=== PATIENT | male | born 1940 | race Caucasian/White ===

== ENCOUNTER 2020-01-09 14:15 | Inpatient (IN) | payer MEDICARE, MEDICAID ==
[~2020-01-09] VITALS: Ht 172.7 cm; Wt 83.1 kg
[2020-01-09] MEDS ORDERED: METHYL SALICYLATE/MENTHOL TOPICAL OINTMENT 57GM TUBE. TP PRN (21:15)
[2020-01-09] MEDS ORDERED: MAGNESIUM HYDROXIDE 2,400 MG/30 ML ORAL.SUSP. PO PRN (21:15)
[2020-01-09] MEDS ORDERED: MAG HYDROX/AL HYDROX/SIMETH 30 ML ORAL.SUSP PO PRN (21:15)
[2020-01-09] MEDS ORDERED: ACETAMINOPHEN 325 MG TABLET PO PRN (21:15)
[2020-01-09] MEDS ORDERED: ATORVASTATIN CA80 MG PO (21:40)
[2020-01-09] MEDS ORDERED: HYDR-2145 PO (21:40)
[2020-01-09] MEDS ORDERED: SEMA0.25 SQ (21:40)
[2020-01-09] MEDS ORDERED: MEDR10TA3 PO (21:40)
[2020-01-09] MEDS ORDERED: UMEC62.5 IH (21:40)
[2020-01-09] MEDS ORDERED: DONE10TA7 PO (21:40)
[2020-01-09] MEDS ORDERED: GLIM2TAB7 PO (21:40)
[2020-01-09] MEDS ORDERED: PANT40TA3 PO (21:40)
[2020-01-09] MEDS ORDERED: ASPI-630 PO (21:40)
[2020-01-09] MEDS ORDERED: POTA20TA4 PO (21:40)
[2020-01-09] MEDS ORDERED: FLAX100031 PO (21:40)
[2020-01-09] MEDS ORDERED: DIVA125C2 PO (21:40)
[2020-01-09] MEDS ORDERED: LABE200T4 PO (21:40)
[2020-01-09] MEDS ORDERED: MEMA10TA PO (21:40)
[2020-01-09] MEDS ORDERED: TRIA15OI TP (21:40)
[2020-01-09 21:59] VITALS: BP 155/80
--- NOTE | 2020-01-09 22:24 | PDOC ---
Exam Note: Cheng Note: Please also refer to the separate dictated note~for this date of service dictated separately.~Patient seen individually. Discussed the patient with Nursing staff reviewed the chart.~Reviewed interim history and current functioning. Reviewed vital signs,~Labs/ Radiology~and current medications noted below. Continue current treatment with the changes noted in the dictated addendum note Assessment: Vital Signs/I&O: Vital Signs Date Time Temp Pulse Resp B/P (MAP) Pulse Ox O2 Delivery O2 Flow Rate FiO2 01/09/20 21:59 97.5 68 18 155/80 (105) 98 Current Medications: I have reviewed the current psychotropics carefully including drug interactions. Risk benefit ratio favors no change other than as noted in my dictated progress note. SAVANNAH BIRD MD Jan 09, 2020 22:24
[2020-01-09] MEDS: LABETALOL HCL 200 MG TABLET PO SCH (22:27)
--- NOTE | 2020-01-10 03:06 | NUR ---
Admission Note with Justification for Admission to [facility] Patient admitted to [facility] for protective oversight for emergency stabilization of acute psychiatric crisis. Pt admitted from: SNF Mode of arrival: EMS Accompanied By: EMS Precipitating behaviors that initiated intake and admission: Inappropriate Sexual Behaviors Description of failure of out patient attempts at stabilization in previous setting list behavior and medication trials: Facility Unable to control behaviors. Danger to staff and peers. Behaviors and assessment findings upon admission: Patient has been calm and compliant since arrival. Pleasant during interactions. Very [place]. Compliant with admission assessment. Plan: Admit for protective oversight for adjustment and stabilization of medications, behaviors and mood. Intense treatment regimen including groups, medication adjustments, therapy, consistent regimen for ADL's, self care, and sleep hygiene. Daily monitoring by Inpatient staff, Psychiatry, and Medical Physician.
[2020-01-10 05:21] LABS: CLARITY,URINE CLOUDY; COLOR,URINE BROWN; GLUCOSE,URINE NEG (NEG)
[2020-01-10 05:23] LABS: BILIRUBIN,URINE NEG (NEG); NITRITE,URINE POS (NEG); RBC,URINE TNTC /HPF (0-2)
[2020-01-10 05:24] LABS: BACTERIA,URINE FEW /HPF (0-FEW); SQUAMOUS EPITHELIAL CELL,UR FEW /LPF
[2020-01-10 05:52] LABS: BASO # 0.1 x10^3/uL (0.0-0.2); BASO % 1 % (0-3); EOS # 0.1 x10^3/uL (0.0-0.7); EOS % 2 % (0-3); HEMATOCRIT 35.9 % (39.0-53.0); HEMOGLOBIN 11.6 g/dL (13.0-17.5); LYMPH # 2.1 x10^3/uL (1.0-4.8); LYMPH % 26 % (24-48); MEAN CORPUSCULAR HEMOGLOBIN 28 pg (25-35); MEAN CORPUSCULAR HGB CONC 32 g/dL (31-37); MEAN CORPUSCULAR VOLUME 87 fL (79-100); MONO # 0.7 x10^3/uL (0.0-1.1); MONO % 9 % (0-9); NEUT # 5.1 x10^3uL (1.8-7.7); NEUT % 63 % (31-73); PLATELET COUNT 289 x10^3/uL (140-400); RED BLOOD COUNT 4.15 x10^6/uL (4.30-5.70); RED CELL DISTRIBUTION WIDTH 16.9 % (11.5-14.5); WHITE BLOOD COUNT 8.1 x10^3/uL (4.0-11.0)
[2020-01-10 06:06] LABS: VAL ACID 21 mcg/mL (50-100)
[2020-01-10 06:08] LABS: ALBUMIN/GLOBULIN RATIO 0.8 (1.0-1.7); CALCIUM 8.9 mg/dL (8.5-10.1); CREATININE 1.9 mg/dL (0.7-1.3); GFR 34.2; MAGNESIUM 2.3 mg/dL (1.8-2.4); TOTAL BILIRUBIN 0.3 mg/dL (0.2-1.0); TOTAL PROTEIN 6.9 g/dL (6.4-8.2)
[2020-01-10 06:23] VITALS: BP 129/71
[2020-01-10] MEDS ORDERED: hydroCHLOROthiazide 25 MG TABLET PO SCH (09:00)
[2020-01-10] MEDS ORDERED: UMECLIDINIUM BROMIDE IH SCH (09:00)
[2020-01-10] MEDS ORDERED: POTASSIUM CHLORIDE 20 MEQ TABLET.ER. PO SCH (09:00)
[2020-01-10] MEDS: NON FORMULARY ITEM (Flaxseed Oil (Flaxseed) 1,000 MG) PO SCH ×2 (09:31→21:00)
[2020-01-10] MEDS: MEMANTINE 10 MG TABLET. PO SCH ×2 (09:41→21:00)
[2020-01-10] MEDS: DIVALPROEX 125 MG CAP.SPRINK PO SCH ×3 (09:42→21:00)
[2020-01-10] MEDS: ASPIRIN CHEWABLE 81 MG TABLET. PO SCH (09:42)
[2020-01-10] MEDS: GLIMEPIRIDE 2 MG TABLET PO SCH ×3 (09:42→17:50)
[2020-01-10] MEDS: PANTOPRAZOLE 40 MG TABLET. PO SCH (09:42)
[2020-01-10] MEDS: LABETALOL HCL 200 MG TABLET PO SCH ×2 (09:42→21:06)
[2020-01-10] MEDS: IPRATROPIUM/ALBUTEROL 20/100mcg/INH INHALER. INH SCH ×5 (09:43→20:59)
[2020-01-10] MEDS: TRIAMCINOLONE ACETONIDE 0.1% TOPICAL OINTMENT 15GM TUBE. TP SCH ×3 (09:43→21:00)
--- NOTE | 2020-01-10 13:14 | NUR ---
Patient not receptive to medications. He took the cup and laid it on the bed next to himself. Nurse had remind patient medications were there multiple times. Eventually medications were given a few at a time on a spoon. Patient was able to handle the water glass himself. Patient oriented to name and and seems to be very disorganized and [place]. He was NOT noted to be inappropriate with this nurse during our interaction. He was calm and cooperative.
[2020-01-10 15:15] LABS: THYROID STIM HORMONE (TSH) 1.465 uIU/mL (0.358-3.740)
[2020-01-10 15:16] VITALS: BP 121/67
[2020-01-10] MEDS: POTASSIUM BICARB 20 MEQ EFFERVESCENT TABLET. PO SCH (15:25)
--- NOTE | 2020-01-10 16:00 | NUR ---
Patient was sexually inappropriate with [employer]PECTOR, attempting to pull her into bed with himself. Patient is having a difficult time taking medications, he is disorganized. Patients urine sample went to culture.
[2020-01-10 17:07] LABS: THYROXINE 4.7 ug/dL (4.5-12.0)
--- NOTE | 2020-01-10 17:51 | NUR ---
Patient rude and dismissive to nurse. He put his hand up in front of nurse face and refused his medications.
--- NOTE | 2020-01-10 19:26 | CONS ---
DATE OF CONSULTATION: 01/10/2020 REASON FOR CONSULTATION: Medical management. HISTORY OF PRESENT ILLNESS: The patient is an 79-year-old male patient, a resident at [facility] who was admitted on account of being sexually inappropriate in terms of behavior and statement towards staff and peers, all this in a background of major neurocognitive disorder, vascular Alzheimer with delusion, depression with behavioral disturbances, anxiety disorder unspecified and also impulse control. The patient is extremely or profoundly demented, does not give any useful information. He displayed that behavior at this unit also today. PAST MEDICAL HISTORY: Significant for chronic obstructive pulmonary disease, type 2 diabetes, hyperlipidemia, osteoarthritis, obstructive sleep apnea, hypertension. ALLERGIES: He is allergic to ADENOSINE and ALOE VERA. MEDICATIONS: He is currently on following medications: Aricept 10 mg once a day, potassium bicarbonate 20 mEq once a day, flaxseed 1000 mg p.o. b.i.d., triamcinolone acetonide for Kenalog cream applied topically 3 times a day, Protonix 40 mg daily, Namenda 10 mg twice a day, hydrochlorothiazide 25 mg daily, divalproex sodium 125 mg 3 times a day, aspirin 81 mg daily, Combivent Respimat inhaler 1 puff 4 times a day, glimepiride 2 mg twice a day with meals, labetalol 200 mg twice a day, magnesium oxide for milk of magnesia 30 mL p.o. daily p.r.n. for constipation, Mylanta plus 15 mL after meals and as needed. He is on Analgesic balm 1 application 4 times a day and Tylenol 650 mg every 6 hours. FAMILY HISTORY: Unobtainable. SOCIAL HISTORY: Apparently, he is a resident at [facility]. No further information available. His diet is regular with reduced carbs. He apparently is able to ambulate ad yimi. PHYSICAL EXAMINATION: GENERAL: When I examined him this afternoon, he was resting slightly propped up in bed, in no apparent respiratory distress, slightly pale. No jaundice or cyanosis. No lymphadenopathy, no thyromegaly. No jugular venous distention. No limb edema. VITAL SIGNS: His heart rate was 61, blood pressure was 121/67, temperature was 98.1, respiratory rate was 18 and oxygen saturation was 97% on room air. HEAD, EYES, EARS, NOSE AND THROAT: Showed he is normocephalic, atraumatic. NECK: Supple. HEART: Normal first and second heart sounds. No gallop, rub or murmur. CHEST: Clear to auscultation. No crepitation or rhonchi. ABDOMEN: Distended, soft, nontender. NEUROLOGIC: He is demented, but without any obvious lateralizing sign. All his cranial nerves are intact. EXTREMITIES: He moves extremities without difficulty and apparently is able to ambulate. LABORATORY DATA: His lab work showed a white cell count of 8100, hemoglobin 11.6, hematocrit 35.9, MCV 87 and platelet count of 289,000. His chemistry showed serum sodium 151, potassium 3, chloride 112, bicarbonate 30, anion gap of 9, BUN 33, creatinine 1.9, estimated GFR was 34 mL per minute, his glucose 145, calcium was 8.9, magnesium was 2.3. Serum iron, TIBC and iron saturation are all consistent with anemia of chronic disease. His total bilirubin, AST, ALT, alkaline phosphatase were normal. Total protein was 6.9, albumin was 3. Serum triglycerides were 78, total cholesterol was 121, LDL was 77, VLDL was 15, HDL was 29 and the ratio was 4. His TSH was 1.465. His urinalysis showed the urine was brown, cloudy with a pH of 7, specific gravity of 1.020. There was a small amount of protein, negative for glucose and ketones, large amount of blood, positive for nitrite. There was large amount of leukocyte esterase, too numerous to count rbc's and 11-20 wbc's, and very few bacteria. Toxic screen showed that his valproic acid was only 21 mcg/mL, which is below the lower limit of therapeutic range. IMPRESSION: In summary, this is an 79-year-old male patient, a resident at [facility], who was admitted for sexually inappropriate behavior and statement towards staff and peers, all this obviously in a background of major neurocognitive disorder. Medically, however, he has a multitude of medical problems including chronic obstructive pulmonary disease, type 2 diabetes, hyperlipidemia, hypertension, obstructive sleep apnea and generalized osteoarthritis. His lab work also showed that he has hypernatremia with a serum sodium of 151. He has also hypokalemia and chronic kidney disease. His BUN and creatinine are up to 33 and 1.9. He has also hematuria. His anemia is normochromic normocytic with iron studies consistent with anemia of chronic disease. PLAN: My plan is to discontinue his potassium chloride as he is unable to swallow tablets and switch him to potassium bicarbonate and effervescent tablet. I discontinued his hydrochlorothiazide and his blood pressure is somewhat labile, but I will arrange for him to have also CT scan of the abdomen and pelvis without contrast given that he has hematuria to see if there are any stones in his kidneys, hydronephrosis or any tumors that might be responsible for his hematuria. I will definitely repeat his lab work and might have to increase his potassium bicarbonate to replenish his potassium. Thank you, Dr. Snider for allowing me to participate in the care of this patient. JULIAN HERNANDEZ MD DR: STACI/rosita JOB#: [id number] / [id number]
[2020-01-10] MEDS: medroxyPROGESTERone 5 MG TABLET PO SCH (21:00)
[2020-01-10] MEDS: ATORVASTATIN CALCIUM 20 MG TABLET PO SCH (21:00)
[2020-01-10] MEDS: DONEPEZIL HCL 10 MG TABLET PO SCH (21:00)
--- NOTE | 2020-01-10 21:57 | PDOC ---
Exam Note: Cheng Note: Please also refer to the separate dictated note~for this date of service dictated separately.~Patient seen individually. Discussed the patient with Nursing staff reviewed the chart.~Reviewed interim history and current functioning. Reviewed vital signs,~Labs/ Radiology~and current medications noted below. Continue current treatment with the changes noted in the dictated addendum note Assessment: Vital Signs/I&O: Vital Signs Date Time Temp Pulse Resp B/P (MAP) Pulse Ox O2 Delivery O2 Flow Rate FiO2 01/10/20 21:06 61 121/67 01/10/20 15:16 98.1 18 97 I & O 01/09/20 01/09/20 01/10/20 15:00 23:00 07:00 Intake Total 0 ml Balance 0 ml Labs: Laboratory Tests Test 01/10/20 04:51 01/10/20 05:40 01/10/20 07:22 Urine Collection Type Unknown Urine Color Brown Urine Clarity Cloudy Urine pH 7.0 Urine Specific [place] 1.020 Urine Protein 100 mg/dl (NEG-TRACE) Urine Glucose (UA) Neg mg/dL (NEG) Urine Ketones (Stick) Neg mg/dL (NEG) Urine Blood Large (NEG) Urine Nitrite Pos (NEG) Urine Bilirubin Neg (NEG) Urine Urobilinogen Dipstick 1.0 mg/dL (0.2 mg/dL) Urine Leukocyte Esterase Large (NEG) Urine RBC Tntc /HPF (0-2) Urine WBC 11-20 /HPF (0-4) Urine Squamous Epithelial Cells Few /LPF Urine Bacteria Few /HPF (0-FEW) White Blood Count 8.1 x10^3/uL (4.0-11.0) Red Blood Count 4.15 x10^6/uL (4.30-5.70) L Hemoglobin 11.6 g/dL (13.0-17.5) L Hematocrit 35.9 % (39.0-53.0) L Mean Corpuscular Volume 87 fL (79-100) Mean Corpuscular Hemoglobin 28 pg (25-35) Mean Corpuscular Hemoglobin Concent 32 g/dL (31-37) Red Cell Distribution Width 16.9 % (11.5-14.5) H Platelet Count 289 x10^3/uL (140-400) Neutrophils (%) (Auto) 63 % (31-73) Lymphocytes (%) (Auto) 26 % (24-48) Monocytes (%) (Auto) 9 % (0-9) Eosinophils (%) (Auto) 2 % (0-3) Basophils (%) (Auto) 1 % (0-3) Neutrophils # (Auto) 5.1 x10^3uL (1.8-7.7) Lymphocytes # (Auto) 2.1 x10^3/uL (1.0-4.8) Monocytes # (Auto) 0.7 x10^3/uL (0.0-1.1) Eosinophils # (Auto) 0.1 x10^3/uL (0.0-0.7) Basophils # (Auto) 0.1 x10^3/uL (0.0-0.2) Sodium Level 151 mmol/L (136-145) H Potassium Level 3.0 mmol/L (3.5-5.1) L Chloride Level 112 mmol/L (98-107) H Carbon Dioxide Level 30 mmol/L (21-32) Anion Gap 9 (6-14) Blood Urea Nitrogen 33 mg/dL (8-26) H Creatinine 1.9 mg/dL (0.7-1.3) H Estimated GFR (Cockcroft-Gault) 34.2 BUN/Creatinine Ratio 17 (6-20) Glucose Level 145 mg/dL (70-99) H Calcium Level 8.9 mg/dL (8.5-10.1) Magnesium Level 2.3 mg/dL (1.8-2.4) Iron Level 26 ug/dL (65-175) L Total Iron Binding Capacity 259 ug/dL (250-450) Iron Saturation 10 % (15-34) L Total Bilirubin 0.3 mg/dL (0.2-1.0) Aspartate Amino Transferase (AST) 15 U/L (15-37) Alanine Aminotransferase (ALT) 25 U/L (16-63) Alkaline Phosphatase 88 U/L (46-116) Total Protein 6.9 g/dL (6.4-8.2) Albumin 3.0 g/dL (3.4-5.0) L Albumin/Globulin Ratio 0.8 (1.0-1.7) L Triglycerides Level 78 mg/dL (0-150) Cholesterol Level 121 mg/dL (0-200) LDL Cholesterol, Calculated 77 mg/dL (0-100) VLDL Cholesterol, Calculated 15 mg/dL (0-40) Non-HDL Cholesterol Calculated 92 mg/dL (0-129) HDL Cholesterol 29 mg/dL (40-60) L Cholesterol/HDL Ratio 4.0 Thyroid Stimulating Hormone (TSH) 1.465 uIU/mL (0.358-3.740) Thyroxine (T4) 4.7 ug/dL (4.5-12.0) Total Triiodothyronine (TT3) 74 ng/dL (71-180) Valproic Acid Level 21 mcg/mL (50-100) L Valproic Acid Last Dose Date 01/09/2020 Valproic Acid Last Dose Time 2100 Glucose (Fingerstick) 141 mg/dL (70-99) H Current Medications: Meds: Current Medications Medications (Trade) Dose Ordered Sig/Gabrielle Route PRN Reason Start Time Stop Time Status Last Admin Dose Admin Aspirin (Aspirin Chewable) 81 mg DAILY PO 01/10/20 09:00 01/10/20 09:42 Divalproex Sodium (Depakote Sprinkles) 125 mg TID PO 01/10/20 09:00 01/10/20 17:34 DC 01/10/20 15:24 Donepezil HCl (Aricept) 10 mg QHS PO 01/10/20 21:00 01/10/20 21:00 Glimepiride (Amaryl) 2 mg BIDWMEALS PO 01/10/20 08:00 01/10/20 09:42 Hydrochlorothiazide (Hydrodiuril) 25 mg DAILY PO 01/10/20 09:00 01/10/20 16:51 DC 01/10/20 09:42 Labetalol HCl (Trandate) 200 mg BID PO 01/09/20 22:15 01/10/20 21:06 Memantine (Namenda) 10 mg BID PO 01/10/20 09:00 01/10/20 21:00 Pantoprazole Sodium (Protonix) 40 mg DAILY PO 01/10/20 09:00 01/10/20 09:42 Potassium Chloride (Klor-Con) 20 meq DAILY PO 01/10/20 09:00 01/10/20 14:18 DC 01/10/20 09:41 Triamcinolone Acetonide (Kenalog) 1 danny TID TP 01/10/20 09:00 01/10/20 21:00 Atorvastatin Calcium (Lipitor) 80 mg QHS PO 01/10/20 21:00 01/10/20 21:00 Medroxyprogesterone Acetate (Provera) 10 mg HS PO 01/10/20 21:00 01/10/20 21:00 Albuterol/ Ipratropium (Combivent Respimat 20-100 Mcg) 1 puff RTQID INH 01/10/20 08:00 01/10/20 20:59 Potassium Bicarbonate (Potassium Effervescent Tablet) 20 meq DAILY PO 01/10/20 14:30 01/10/20 15:25 Divalproex Sodium (Depakote Sprinkles) 250 mg BID PO 01/10/20 21:00 01/10/20 21:00 I have reviewed the current psychotropics carefully including drug interactions. Risk benefit ratio favors no change other than as noted in my dictated progress note. Diagnosis: Problems: (1) Major neurocognitive disorder (2) Dementia in Alzheimer's disease with delusions (3) Dementia in Alzheimer's disease with depression (4) Dementia of the Alzheimer's type with early onset with behavioral distur bance (5) Dementia, vascular, with delusions (6) Dementia, vascular, with depression (7) Impulse control disorder, unspecified (8) Anxiety disorder, unspecified SAVANNAH BIRD MD Jan 10, 2020 21:57
--- NOTE | 2020-01-10 23:28 | NUR ---
Nursing Note The patient was located in his room for his assessment and medication pass. The patient was compliant with his medication and took them whole. The patient was disorganized and very [place] but was compliant and pleasant during interactions with this nurse. The patient is currently sleeping in his room.
[2020-01-11 05:09] LABS: HEMOGLOBIN A1C 7.7 % (4.8-5.6)
[2020-01-11 06:29] VITALS: BP 146/77
[2020-01-11 06:58] LABS: CALCIUM 8.5 mg/dL (8.5-10.1); CREATININE 1.6 mg/dL (0.7-1.3); GFR 41.7; POTASSIUM 3.2 mmol/L (3.5-5.1)
--- NOTE | 2020-01-11 08:31 | RAD ---
EXAM: Abdomen and pelvis CT without intravenous contrast. HISTORY: Hematuria. Renal failure. TECHNIQUE: Computed tomographic images of the abdomen and pelvis were obtained without contrast. Multiplanar reformatting was performed. *One or more of the following individualized dose reduction techniques were utilized for this examination: 1. Automated exposure control. 2. Adjustment of the mA and/or kV according to patient size. 3. Use of iterative reconstruction technique. COMPARISON: None. FINDINGS: The exam is limited due to motion. There is right middle and lower lobe atelectasis or pleural parenchymal scarring. There is calcified atherosclerotic plaque involving the coronary arteries. No consolidation or pleural effusion is seen. No hepatic lesion is seen. There is slight increased density within the dependent portions of the gallbladder, possibly artifact due to patient motion or cholelithiasis. The pancreas, spleen and stomach are unremarkable. There are bilateral adrenal gland nodules measuring 2.4 cm of the right and 2.6 cm of the left. The attenuation of these lesions favors adrenal adenomas. There are multiple hypodense lesions within the kidneys. The largest lesion on the right is seen within the lower pole measuring 4.1 cm with attenuation consistent with a cyst. There may be an adjacent smaller cyst in this location. There is a 6 mm nodular lesion along the lateral lower mid zone of the right kidney which is too small to characterize in the absence of contrast. There is a 4.1 cm cyst within the upper pole of the left kidney. There is 1.7 cm cyst within the lower pole the left kidney. There is a tiny right renal stone or renal vascular calcification. There is no hydronephrosis. The urinary bladder is unremarkable. There is no evidence of bowel obstruction. There is distal colonic diverticulosis without evidence of diverticulitis. There is ectasia of the abdominal aorta to a caliber of 2.8 cm. There is calcified atherosclerotic plaque involving the aorta and main aortic branch vessels. There is no lymphadenopathy. There are degenerative changes throughout the spine. There is a moderate acute or subacute compression fracture of T11. There is no retropulsion of the cortex at this level. There is a suspected chronic fracture involving the sacrum. There are chronic nonunited and nonunited fractures involving the posterior left 11th and 10th ribs. There are additional healed rib fractures. There is bone demineralization. There is a small fat-containing left inguinal hernia. IMPRESSION: 1. Multiple bilateral renal cysts. There is a superimposed 6 mm nodular lesion along the lateral right kidney which is too small to characterize. This may also be a cyst. Follow-up with a contrast-enhanced exam may be useful to exclude a solid lesion. This likely too small to characterize sonographically. There is no hydronephrosis. 2. Tiny right renal stone or renal vascular calcification. 3. Colonic diverticulosis. 4. Slight increased density within the gallbladder due to motion artifact or cholelithiasis. 5. Bilateral adrenal nodules, the attenuation of which favors adenomas. 6. Moderate acute or subacute compression fracture of T11. Electronically signed by: Mariela Cornejo MD (01/11/2020 8:28 AM) [id number]
[2020-01-11] MEDS: GLIMEPIRIDE 2 MG TABLET PO SCH ×2 (08:51→18:03)
[2020-01-11] MEDS: POTASSIUM BICARB 20 MEQ EFFERVESCENT TABLET. PO SCH (08:52)
[2020-01-11] MEDS: ASPIRIN CHEWABLE 81 MG TABLET. PO SCH (08:52)
[2020-01-11] MEDS: LABETALOL HCL 200 MG TABLET PO SCH ×2 (08:52→21:01)
[2020-01-11] MEDS: MEMANTINE 10 MG TABLET. PO SCH ×2 (08:52→21:01)
[2020-01-11] MEDS: PANTOPRAZOLE 40 MG TABLET. PO SCH (08:52)
[2020-01-11] MEDS: IPRATROPIUM/ALBUTEROL 20/100mcg/INH INHALER. INH SCH ×4 (08:52→20:59)
[2020-01-11] MEDS: DIVALPROEX 125 MG CAP.SPRINK PO SCH ×2 (08:52→21:00)
[2020-01-11] MEDS: TRIAMCINOLONE ACETONIDE 0.1% TOPICAL OINTMENT 15GM TUBE. TP SCH ×3 (08:53→21:00)
--- NOTE | 2020-01-11 12:27 | HP ---
ADMIT DATE: 01/10/2020 This late entry date of service 01/10/2020 covers elements not covered in my initial note. This evaluation was conducted via Telehealth services and discussed with PRANAV Estes and previously with Vanda Obregon, educational resource coordinator. IDENTIFYING DATA: The patient is an 79-year-old male referred to us from [place], [place], referred by his primary care physician on account of increasing agitation, aggression, disruptive behaviors within the facility and within the context of his major neurocognitive disorder, Alzheimer, vascular with delusion, depression, behavioral disturbance. He was making sexually inappropriate physical acts towards nursing staff and verbal statements towards staff and peers. The patient's behaviors were deemed dangerous, unmanageable, disruptive at the facility resulting in this referral for stabilization. CHIEF COMPLAINT: "No." The patient is quite confused, does not even seem to know what to do with his food and medications when they were presented to him. HISTORY OF PRESENT ILLNESS: The patient has a history of major neurocognitive disorder, Alzheimer, vascular with delusion, depression, behavioral disturbance. He has been residing at the above facility for some time, recently getting more confused, agitated with sleep and appetite changes, psychotic symptoms. No active suicidal or homicidal ideation. No clear history of bipolar disorder. PAST PSYCHIATRIC HISTORY: As above. MEDICAL HISTORY: Positive for probable urinary tract infection. UA had some blood and cultures awaited. Also has a history of COPD, heart disease, type 2 diabetes mellitus, hyperlipidemia, osteoarthritis, obstructive sleep apnea, hypertension. DRUG ALLERGIES: ADENOSINE AND ALOE VERA. CODE STATUS: DNR. Ambulates ad yimi. CURRENT PSYCHOTROPICS: Depakote Sprinkles 125 mg t.i.d., Aricept 10 mg a day, Namenda 10 mg b.i.d., valproic acid level subtherapeutic at 21. REVIEW OF SYSTEMS: No CV, , pulmonary, eye, ENT system symptoms on review. Reliability poor. MENTAL STATUS EXAMINATION: Oriented to himself. Insight, judgment, recent and remote memory, attention, concentration, fund of knowledge poor, consistent with his diagnosis. IMPRESSION: Major neurocognitive disorder, Alzheimer, vascular with delusion, depression, behavioral disturbance; anxiety disorder, unspecified; impulse control disorder, unspecified; probable urinary tract infection. Rest unchanged from above. PLAN: Admit to Geropsychiatry Unit at [facility]. I will see the patient daily individually from a psychiatric standpoint. Medical followup with Dr. Delatorre/Dr. Gonzales. Valproic acid level subtherapeutic at 21. We will increase the Depakote Sprinkles from 125 t.i.d. to 250 mg b.i.d. Check CBC, CMP, valproic acid level in [address] Delatorre is working up the UTI and also showed blood in the urine. Having a CT abdomen per Dr. Delatorre. Slept 5-3/4 hours previous night. We will observe baseline, adjust psychotropics to stabilize him prior to transitioning back to [facility]. ESTIMATED LENGTH OF STAY: 10-12 days. DISPOSITION: Plans back to [facility] when stable. MAN Tricia BIRD MD DR: MARY ELLEN/rosita JOB#: [id number] / [id number]
--- NOTE | 2020-01-11 13:15 | NUR ---
ACTIVITY THERAPY ASSESSMENT completed based on notes, observation, and interview. Pt was sitting in his room eating lunch. Pt was willing to answer questions from AT when asked. Pt was calm, pleasant, and controlled during time of assessment. Pt is very [place] and inaudible at times. When AT asked pt how he was doing today he said that he felt good. AT used this that questions to find leisure interests.Pt likes music and reading. Pt doesn't like to watch TV. Pt spit out food like he had a sunflower seed or chew in his mouth. AT asked pt if he was or had children and he said no. When asked about family pt spoke but it was inaudible. AT asked what pt liked to do with his friends and he said that he could never get to know his friends. AT asked if pt knew where he was and it sounded like pt said in the middle of a [employer]. Pt could not identify the current year. Pt was unable to give reason for admission and asked why. AT explained the doctor would be looking over his medications to get him better. Pt then began to speak about stair steps. Pt was confused, disoriented, and disorganized. Initial goal aimed to increase time management and socialization skills. Pt will participate in at least one individual or group Activity Therapy session before discharge. Addendum: 01/19/20 at 1141 by EVAN JENKINS ACT Goal changed 01/18: Pt. will participate in at least three individual Activity Therapy sessions per week.
[2020-01-11 15:51] VITALS: BP 99/63
--- NOTE | 2020-01-11 17:22 | NUR ---
Patient was calmly laying in bed eating toast, he seemed to be having problems manipulating it to his mouth. Patient was compliant with medications but needed a lot of prompting from nurse and step by step instructions. Patients diet was switched to finger foods by dietary, nursing staff will continue to monitor. When nurse asked patient questions he made non-sensible answers. No s/s pain noted. Cooperative with CT abdomen this morning. Will give results to Dr Gonzales on rounds.
[2020-01-11 20:56] VITALS: BP 121/67
[2020-01-11] MEDS: ATORVASTATIN CALCIUM 20 MG TABLET PO SCH (21:00)
[2020-01-11] MEDS: medroxyPROGESTERone 5 MG TABLET PO SCH (21:00)
[2020-01-11] MEDS: DONEPEZIL HCL 10 MG TABLET PO SCH (21:01)
--- NOTE | 2020-01-11 22:04 | PDOC ---
Exam Note: Cheng Note: Please also refer to the separate dictated note~for this date of service dictated separately.~Patient seen individually. Discussed the patient with Nursing staff reviewed the chart.~Reviewed interim history and current functioning. Reviewed vital signs,~Labs/ Radiology~and current medications noted below. Continue current treatment with the changes noted in the dictated addendum note Assessment: Vital Signs/I&O: Vital Signs Date Time Temp Pulse Resp B/P (MAP) Pulse Ox O2 Delivery O2 Flow Rate FiO2 01/11/20 21:04 97.9 95 01/11/20 21:01 62 121/67 01/11/20 15:51 20 I & O 01/10/20 01/10/20 01/11/20 15:00 23:00 07:00 Intake Total 1130 ml 300 ml Balance 1130 ml 300 ml Labs: Laboratory Tests Test 01/11/20 06:38 Sodium Level 145 mmol/L (136-145) Potassium Level 3.2 mmol/L (3.5-5.1) L Chloride Level 107 mmol/L (98-107) Carbon Dioxide Level 28 mmol/L (21-32) Anion Gap 10 (6-14) Blood Urea Nitrogen 25 mg/dL (8-26) Creatinine 1.6 mg/dL (0.7-1.3) H Estimated GFR (Cockcroft-Gault) 41.7 Glucose Level 137 mg/dL (70-99) H Calcium Level 8.5 mg/dL (8.5-10.1) Current Medications: I have reviewed the current psychotropics carefully including drug interactions. Risk benefit ratio favors no change other than as noted in my dictated progress note. 

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
[2020-01-12 05:41] VITALS: BP 137/67
[2020-01-12] MEDS: IPRATROPIUM/ALBUTEROL 20/100mcg/INH INHALER. INH SCH ×5 (08:29→20:00)
[2020-01-12] MEDS: TRIAMCINOLONE ACETONIDE 0.1% TOPICAL OINTMENT 15GM TUBE. TP SCH ×4 (08:29→21:00)
[2020-01-12] MEDS: POTASSIUM BICARB 20 MEQ EFFERVESCENT TABLET. PO SCH (08:30)
[2020-01-12] MEDS: MEMANTINE 10 MG TABLET. PO SCH ×2 (08:30→19:57)
[2020-01-12] MEDS: LABETALOL HCL 200 MG TABLET PO SCH ×3 (08:30→21:00)
[2020-01-12] MEDS: PANTOPRAZOLE 40 MG TABLET. PO SCH (08:30)
[2020-01-12] MEDS: DIVALPROEX 125 MG CAP.SPRINK PO SCH ×2 (08:30→19:54)
[2020-01-12] MEDS: ASPIRIN CHEWABLE 81 MG TABLET. PO SCH (08:30)
[2020-01-12] MEDS: GLIMEPIRIDE 2 MG TABLET PO SCH ×2 (08:31→17:45)
--- NOTE | 2020-01-12 13:30 | NUR ---
Patient in hallway holding hands with female peer. Staff asked patient to stop holding hands, he was irritated by the request but complied.
--- NOTE | 2020-01-12 15:28 | NUR ---
Patient eating breakfast when nurse approached him with medications. Patient refused meds and told this nurse to "get the fuck" out of the room. Nurse observed patient put milk and then apple juice into his cereal and eat it. Medications were given crushed and hidden in vanilla pudding. The patient ate the pudding. Patient is uncooperative with assessment, feigns deafness when asked to do anything. The nurses overheard patient on the telephone having a normal volume conversation with someone and he didn't seem deaf at that time. After lunch patient was in the hallway without his mask on. He was standing very close to a male peer and having a conversation. He was asked to please put his mask on and then told to put it on by several staff members many times (more than 10 times). At that point patient was taken to his room and told to stay in the room if he would not comply with the mask rule. Patient was angry. A staff member was positioned in a chair outside of his doorway to ensure that he stayed in his room if he wouldn't wear the mask. Patient eventually fell asleep and is still sleeping at this time. Will give 1400 antibiotic hidden in snack when patient wakes up.
[2020-01-12 15:35] VITALS: BP 97/58
[2020-01-12] MEDS: CEPHALEXIN 250 MG CAPSULE PO SCH ×2 (17:45→19:57)
[2020-01-12] MEDS: QUEtiapine 25 MG TABLET. PO SCH (17:45)
[2020-01-12] MEDS: medroxyPROGESTERone 5 MG TABLET PO SCH (19:55)
[2020-01-12] MEDS: DONEPEZIL HCL 10 MG TABLET PO SCH (19:58)
[2020-01-12] MEDS: ATORVASTATIN CALCIUM 20 MG TABLET PO SCH (19:58)
[2020-01-12] MEDS: LACTOBACILLUS RHAMNOSUS GG 1 CAPSULE. PO SCH (19:58)
--- NOTE | 2020-01-12 20:20 | NUR ---
At HS med pass pt initially ignored nurse and would not respond. Assessment done and when meds offered pt just wanted to hold them and not take them. Meds were removed and will try again later.
[2020-01-12 20:29] VITALS: BP 72/55
--- NOTE | 2020-01-12 21:00 | NUR ---
Pt talikg some to nurse now meds were taken whole a few at a time with prompting. Laebtolol held for HR of 58. Pt has tremors of extremities and it is difficult to obtain a accurate BP reading at times.
[2020-01-12 21:24] VITALS: BP 106/67
--- NOTE | 2020-01-12 22:05 | PDOC ---
Exam Note: Cheng Note: Please also refer to the separate dictated note~for this date of service dictated separately.~Patient seen individually. Discussed the patient with Nursing staff reviewed the chart.~Reviewed interim history and current functioning. Reviewed vital signs,~Labs/ Radiology~and current medications noted below. Continue current treatment with the changes noted in the dictated addendum note Assessment: Vital Signs/I&O: Vital Signs Date Time Temp Pulse Resp B/P (MAP) Pulse Ox O2 Delivery O2 Flow Rate FiO2 01/12/20 21:24 106/67 (80) 01/12/20 20:29 98.1 67 97 01/12/20 15:35 20 I & O 01/11/20 01/11/20 01/12/20 15:00 23:00 07:00 Intake Total 480 ml 440 ml Balance 480 ml 440 ml Labs: Laboratory Tests Test 01/12/20 07:34 Glucose (Fingerstick) 116 mg/dL (70-99) H Current Medications: Meds: Current Medications Medications (Trade) Dose Ordered Sig/Gabrielle Route PRN Reason Start Time Stop Time Status Last Admin Dose Admin Quetiapine Fumarate (SEROquel) 12.5 mg 0900,1700 PO 01/12/20 17:00 01/12/20 17:45 Cephalexin HCl (Keflex) 250 mg TID PO 01/12/20 14:00 01/12/20 19:57 Lactobacillus Rhamnosus (Culturelle) 1 cap BID PO 01/12/20 21:00 01/12/20 19:58 I have reviewed the current psychotropics carefully including drug interactions. Risk benefit ratio favors no change other than as noted in my dictated progress note. Diagnosis: Problems: (1) Impulse control disorder, unspecified (2) Anxiety disorder, unspecified (3) Dementia, vascular, with depression (4) Dementia, vascular, with delusions (5) Dementia in Alzheimer's disease with depression (6) Dementia in Alzheimer's disease with delusions (7) Dementia of the Alzheimer's type with early onset with behavioral disturbance (8) Major neurocognitive disorder SAVANNAH BIRD MD Jan 12, 2020 22:05
[2020-01-13 07:03] VITALS: BP 137/73
[2020-01-13] MEDS: PANTOPRAZOLE 40 MG TABLET. PO SCH (08:10)
[2020-01-13] MEDS: POTASSIUM BICARB 20 MEQ EFFERVESCENT TABLET. PO SCH (08:10)
[2020-01-13] MEDS: DIVALPROEX 125 MG CAP.SPRINK PO SCH ×2 (08:10→20:58)
[2020-01-13] MEDS: LACTOBACILLUS RHAMNOSUS GG 1 CAPSULE. PO SCH ×2 (08:11→20:57)
[2020-01-13] MEDS: ASPIRIN CHEWABLE 81 MG TABLET. PO SCH (08:11)
[2020-01-13] MEDS: LABETALOL HCL 200 MG TABLET PO SCH ×2 (08:11→21:00)
[2020-01-13] MEDS: CEPHALEXIN 250 MG CAPSULE PO SCH ×3 (08:11→20:58)
[2020-01-13] MEDS: QUEtiapine 25 MG TABLET. PO SCH ×2 (08:11→16:15)
[2020-01-13] MEDS: GLIMEPIRIDE 2 MG TABLET PO SCH ×2 (08:11→16:15)
[2020-01-13] MEDS: MEMANTINE 10 MG TABLET. PO SCH ×2 (08:11→20:58)
[2020-01-13] MEDS: TRIAMCINOLONE ACETONIDE 0.1% TOPICAL OINTMENT 15GM TUBE. TP SCH (08:12)
[2020-01-13] MEDS: IPRATROPIUM/ALBUTEROL 20/100mcg/INH INHALER. INH SCH ×4 (08:12→20:57)
[2020-01-13] MEDS ORDERED: TRIAMCINOLONE ACETONIDE 0.1% TOPICAL OINTMENT 15GM TUBE. TP PRN (10:30)
--- NOTE | 2020-01-13 11:23 | NUR ---
Dr Gonzales notified of Vit D 29.4. No new orders noted.
[2020-01-13 16:17] VITALS: BP 97/69
--- NOTE | 2020-01-13 17:00 | NUR ---
Pt in room in morning. In halls in afternoon. Pt redirected several times to return to room without mask. Pt appears he cant hear staff and keeps miming staff. Has been compliant with meds in pudding.
[2020-01-13 20:53] VITALS: BP 123/75
[2020-01-13] MEDS: NYSTATIN TOPICAL POWDER 15GM BOTTLE. TP SCH (20:57)
[2020-01-13] MEDS: DONEPEZIL HCL 10 MG TABLET PO SCH (20:58)
[2020-01-13] MEDS: ATORVASTATIN CALCIUM 20 MG TABLET PO SCH (20:59)
[2020-01-13] MEDS: medroxyPROGESTERone 5 MG TABLET PO SCH (20:59)
--- NOTE | 2020-01-13 22:00 | NUR ---
Patient is his room on assumption of care, awake in his bed. He is confused, disorganized, and appears to have difficulty hearing. Compliant with assessments and took his medications whole floated in pudding. He seemed to have difficulty with that, chewing his pills, finally swallowing after this nurse encouraged him to do so several times. He does not appear to be in any pain or discomfort. No agitation. Patient appears to be sleeping comfortably at present time.
--- NOTE | 2020-01-13 22:23 | PDOC ---
Exam Note: Cheng Note: Please also refer to the separate dictated note~for this date of service dictated separately.~Patient seen individually. Discussed the patient with Nursing staff reviewed the chart.~Reviewed interim history and current functioning. Reviewed vital signs,~Labs/ Radiology~and current medications noted below. Continue current treatment with the changes noted in the dictated addendum note Assessment: Vital Signs/I&O: Vital Signs Date Time Temp Pulse Resp B/P (MAP) Pulse Ox O2 Delivery O2 Flow Rate FiO2 01/13/20 21:00 86 123/75 01/13/20 20:53 98.8 94 01/13/20 16:17 20 I & O 01/12/20 01/12/20 01/13/20 15:00 23:00 07:00 Intake Total 360 ml 360 ml Balance 360 ml 360 ml Labs: Laboratory Tests Test 01/13/20 07:39 Glucose (Fingerstick) 101 mg/dL (70-99) H Current Medications: Meds: Current Medications Medications (Trade) Dose Ordered Sig/Gabrielle Route PRN Reason Start Time Stop Time Status Last Admin Dose Admin Nystatin (Nystop) 1 danny BID TP 01/13/20 21:00 01/13/20 20:57 I have reviewed the current psychotropics carefully including drug interactions. Risk benefit ratio favors no change other than as noted in my dictated progress note. Diagnosis: Problems: (1) Impulse control disorder, unspecified (2) Anxiety disorder, unspecified (3) Dementia, vascular, with depression (4) Dementia, vascular, with delusions (5) Dementia in Alzheimer's disease with depression (6) Dementia in Alzheimer's disease with delusions (7) Dementia of the Alzheimer's type with early onset with behavioral disturbance (8) Major neurocognitive disorder SAVANNAH BIRD MD Jan 13, 2020 22:22
--- NOTE | 2020-01-13 22:26 | PN ---
DATE: 01/11/2020 PSYCHIATRIC PROGRESS NOTE This late entry 01/11/2020 covers elements not covered in my initial note. SUBJECTIVE: I met with the patient evening of 01/11/2020. Per nursing report, the patient remains withdrawn, somewhat hard of hearing, confused. REVIEW OF SYSTEMS: No CV, , pulmonary, eye, ENT system symptoms on review. Reliability poor. MENTAL STATUS EXAM: Oriented to himself. Insight, judgment, recent and remote memory, attention, concentration, fund of knowledge poor, consistent with his diagnosis. He had a telephone conversation with the family member, which according to nursing staff he was quite lucid. We have to monitor this. LABORATORY DATA: Reviewed. IMPRESSION: Unchanged from initial note. PLAN: No change from initial note. MAN Tricia BIRD MD DR: MARY ELLEN/rosita JOB#: [id number] / [id number]
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
--- NOTE | 2020-01-13 23:21 | PN ---
DATE: 01/12/2020 PSYCHIATRIC PROGRESS NOTE This late entry 01/12/2020 covers elements not covered in my initial note. SUBJECTIVE: I met with the patient evening of 01/12/2020 on telehealth rounds and earlier in the day. The patient was seen in treatment team meeting with the entire team and reviewed with PRANAV Estes, Laurie, social service staff and Vanda, social service staff. He has been confused, urinated on the floor on the way to the shower, refused his meds and inhaler, disorganized. REVIEW OF SYSTEMS: Hard of hearing. No CV, , pulmonary, eye, ENT system symptoms on review. Reliability poor. MENTAL STATUS EXAM: Oriented to himself. Insight, judgment, recent and remote memory, attention, concentration, fund of knowledge poor, consistent with his diagnosis mentioned in my initial note. PLAN: No change from initial note. MAN Tricia BIRD MD DR: MARY ELLEN/rosita JOB#: [id number] / [id number]
[2020-01-14 05:57] VITALS: BP 135/70
[2020-01-14 06:49] LABS: BASO # 0.1 x10^3/uL (0.0-0.2); BASO % 1 % (0-3); EOS # 0.2 x10^3/uL (0.0-0.7); EOS % 2 % (0-3); HEMATOCRIT 34.1 % (39.0-53.0); HEMOGLOBIN 11.2 g/dL (13.0-17.5); LYMPH # 2.2 x10^3/uL (1.0-4.8); LYMPH % 25 % (24-48); MEAN CORPUSCULAR HEMOGLOBIN 29 pg (25-35); MEAN CORPUSCULAR HGB CONC 33 g/dL (31-37); MEAN CORPUSCULAR VOLUME 87 fL (79-100); MONO # 0.8 x10^3/uL (0.0-1.1); MONO % 9 % (0-9); NEUT # 5.3 x10^3uL (1.8-7.7); NEUT % 63 % (31-73); PLATELET COUNT 266 x10^3/uL (140-400); RED BLOOD COUNT 3.94 x10^6/uL (4.30-5.70); RED CELL DISTRIBUTION WIDTH 17.3 % (11.5-14.5); WHITE BLOOD COUNT 8.5 x10^3/uL (4.0-11.0)
[2020-01-14 06:59] LABS: ALBUMIN 2.9 g/dL (3.4-5.0); ALBUMIN/GLOBULIN RATIO 0.8 (1.0-1.7); ALK PHOS 90 U/L (46-116); ALT (SGPT) 29 U/L (16-63); ANION GAP 8 (6-14); AST (SGOT) 18 U/L (15-37); BLOOD UREA NITROGEN 33 mg/dL (8-26); BUN/CREATININE RATIO 21 (6-20); CALCIUM 8.6 mg/dL (8.5-10.1); CARBON DIOXIDE 28 mmol/L (21-32); CHLORIDE 111 mmol/L (98-107); CREATININE 1.6 mg/dL (0.7-1.3); GFR 41.7; GLUCOSE 114 mg/dL (70-99); POTASSIUM 3.7 mmol/L (3.5-5.1); SODIUM 147 mmol/L (136-145); TOTAL BILIRUBIN 0.4 mg/dL (0.2-1.0); TOTAL PROTEIN 6.7 g/dL (6.4-8.2)
[2020-01-14 07:05] LABS: VAL ACID 39 mcg/mL (50-100)
[2020-01-14] MEDS: MEMANTINE 10 MG TABLET. PO SCH ×2 (09:18→20:22)
[2020-01-14] MEDS: CEPHALEXIN 250 MG CAPSULE PO SCH ×3 (09:18→20:22)
[2020-01-14] MEDS: POTASSIUM BICARB 20 MEQ EFFERVESCENT TABLET. PO SCH (09:18)
[2020-01-14] MEDS: LACTOBACILLUS RHAMNOSUS GG 1 CAPSULE. PO SCH ×2 (09:18→20:22)
[2020-01-14] MEDS: ASPIRIN CHEWABLE 81 MG TABLET. PO SCH (09:18)
[2020-01-14] MEDS: GLIMEPIRIDE 2 MG TABLET PO SCH ×2 (09:18→17:00)
[2020-01-14] MEDS: PANTOPRAZOLE 40 MG TABLET. PO SCH (09:18)
[2020-01-14] MEDS: DIVALPROEX 125 MG CAP.SPRINK PO SCH ×2 (09:18→20:23)
[2020-01-14] MEDS: QUEtiapine 25 MG TABLET. PO SCH ×2 (09:18→17:00)
[2020-01-14] MEDS: NYSTATIN TOPICAL POWDER 15GM BOTTLE. TP SCH ×2 (09:19→20:23)
[2020-01-14] MEDS: IPRATROPIUM/ALBUTEROL 20/100mcg/INH INHALER. INH SCH ×4 (09:19→20:23)
[2020-01-14] MEDS: LABETALOL HCL 200 MG TABLET PO SCH ×2 (09:20→20:23)
[2020-01-14] MEDS: NON FORMULARY ITEM (Semaglutide (Ozempic) 0.25 MG) SQ SCH (16:00)
[2020-01-14 16:16] VITALS: BP 143/71
--- NOTE | 2020-01-14 18:09 | NUR ---
Pt up adl in halls. Intermittently reminded to use mask. Has been compliant with meds and redirection thus far.
[2020-01-14] MEDS: DONEPEZIL HCL 10 MG TABLET PO SCH (20:21)
[2020-01-14] MEDS: medroxyPROGESTERone 5 MG TABLET PO SCH (20:23)
[2020-01-14] MEDS: ATORVASTATIN CALCIUM 20 MG TABLET PO SCH (20:23)
--- NOTE | 2020-01-14 22:00 | NUR ---
Patient is sitting in the hallway on assumption of care. He is disorganized, KASHIA. Needs frequent reminders to wear his mask properly. Compliant with assessments and medications taken crushed and mixed with pudding. No agitation. Denies any pain or discomfort. Denies SI. Patient appears to be sleeping comfortably at present time.
--- NOTE | 2020-01-14 22:05 | PDOC ---
Exam Note: Cheng Note: Please also refer to the separate dictated note~for this date of service dictated separately.~Patient seen individually. Discussed the patient with Nursing staff reviewed the chart.~Reviewed interim history and current functioning. Reviewed vital signs,~Labs/ Radiology~and current medications noted below. Continue current treatment with the changes noted in the dictated addendum note Assessment: Vital Signs/I&O: Vital Signs Date Time Temp Pulse Resp B/P (MAP) Pulse Ox O2 Delivery O2 Flow Rate FiO2 01/14/20 20:23 69 143/71 01/14/20 16:16 97.5 20 96 Room Air I & O 01/13/20 01/13/20 01/14/20 15:00 23:00 07:00 Intake Total 360 ml 480 ml 120 ml Balance 360 ml 480 ml 120 ml Labs: Laboratory Tests Test 01/14/20 06:22 01/14/20 08:13 White Blood Count 8.5 x10^3/uL (4.0-11.0) Red Blood Count 3.94 x10^6/uL (4.30-5.70) L Hemoglobin 11.2 g/dL (13.0-17.5) L Hematocrit 34.1 % (39.0-53.0) L Mean Corpuscular Volume 87 fL (79-100) Mean Corpuscular Hemoglobin 29 pg (25-35) Mean Corpuscular Hemoglobin Concent 33 g/dL (31-37) Red Cell Distribution Width 17.3 % (11.5-14.5) H Platelet Count 266 x10^3/uL (140-400) Neutrophils (%) (Auto) 63 % (31-73) Lymphocytes (%) (Auto) 25 % (24-48) Monocytes (%) (Auto) 9 % (0-9) Eosinophils (%) (Auto) 2 % (0-3) Basophils (%) (Auto) 1 % (0-3) Neutrophils # (Auto) 5.3 x10^3uL (1.8-7.7) Lymphocytes # (Auto) 2.2 x10^3/uL (1.0-4.8) Monocytes # (Auto) 0.8 x10^3/uL (0.0-1.1) Eosinophils # (Auto) 0.2 x10^3/uL (0.0-0.7) Basophils # (Auto) 0.1 x10^3/uL (0.0-0.2) Sodium Level 147 mmol/L (136-145) H Potassium Level 3.7 mmol/L (3.5-5.1) Chloride Level 111 mmol/L (98-107) H Carbon Dioxide Level 28 mmol/L (21-32) Anion Gap 8 (6-14) Blood Urea Nitrogen 33 mg/dL (8-26) H Creatinine 1.6 mg/dL (0.7-1.3) H Estimated GFR (Cockcroft-Gault) 41.7 BUN/Creatinine Ratio 21 (6-20) H Glucose Level 114 mg/dL (70-99) H Calcium Level 8.6 mg/dL (8.5-10.1) Total Bilirubin 0.4 mg/dL (0.2-1.0) Aspartate Amino Transferase (AST) 18 U/L (15-37) Alanine Aminotransferase (ALT) 29 U/L (16-63) Alkaline Phosphatase 90 U/L (46-116) Total Protein 6.7 g/dL (6.4-8.2) Albumin 2.9 g/dL (3.4-5.0) L Albumin/Globulin Ratio 0.8 (1.0-1.7) L Valproic Acid Level 39 mcg/mL (50-100) L Valproic Acid Last Dose Date 01/13/20 Valproic Acid Last Dose Time 2100 Glucose (Fingerstick) 121 mg/dL (70-99) H Current Medications: I have reviewed the current psychotropics carefully including drug interactions. Risk benefit ratio favors no change other than as noted in my dictated progress note. Diagnosis: Problems: (1) Impulse control disorder, unspecified (2) Anxiety disorder, unspecified (3) Dementia, vascular, with depression (4) Dementia, vascular, with delusions (5) Dementia in Alzheimer's disease with depression (6) Dementia in Alzheimer's disease with delusions (7) Dementia of the Alzheimer's type with early onset with behavioral distur bance (8) Major neurocognitive disorder SAVANNAH BIRD MD Jan 14, 2020 22:05
[2020-01-15 05:28] VITALS: BP 141/67
[2020-01-15 06:58] LABS: BASO # 0.1 x10^3/uL (0.0-0.2); BASO % 1 % (0-3); EOS # 0.3 x10^3/uL (0.0-0.7); EOS % 4 % (0-3); HEMATOCRIT 34.2 % (39.0-53.0); HEMOGLOBIN 11.1 g/dL (13.0-17.5); LYMPH # 2.2 x10^3/uL (1.0-4.8); LYMPH % 26 % (24-48); MEAN CORPUSCULAR HEMOGLOBIN 28 pg (25-35); MEAN CORPUSCULAR HGB CONC 33 g/dL (31-37); MEAN CORPUSCULAR VOLUME 86 fL (79-100); MONO # 0.6 x10^3/uL (0.0-1.1); MONO % 8 % (0-9); NEUT # 5.2 x10^3uL (1.8-7.7); NEUT % 62 % (31-73); PLATELET COUNT 257 x10^3/uL (140-400); RED BLOOD COUNT 3.97 x10^6/uL (4.30-5.70); WHITE BLOOD COUNT 8.3 x10^3/uL (4.0-11.0)
[2020-01-15 07:04] LABS: ALBUMIN 2.8 g/dL (3.4-5.0); ALBUMIN/GLOBULIN RATIO 0.8 (1.0-1.7); CALCIUM 8.5 mg/dL (8.5-10.1); CREATININE 1.6 mg/dL (0.7-1.3); GFR 41.7; POTASSIUM 3.5 mmol/L (3.5-5.1); TOTAL BILIRUBIN 0.5 mg/dL (0.2-1.0); TOTAL PROTEIN 6.4 g/dL (6.4-8.2)
[2020-01-15] MEDS: IPRATROPIUM/ALBUTEROL 20/100mcg/INH INHALER. INH SCH ×5 (08:00→20:59)
[2020-01-15] MEDS: MEMANTINE 10 MG TABLET. PO SCH ×2 (08:31→20:53)
[2020-01-15] MEDS: ASPIRIN CHEWABLE 81 MG TABLET. PO SCH (08:31)
[2020-01-15] MEDS: QUEtiapine 25 MG TABLET. PO SCH ×2 (08:31→17:00)
[2020-01-15] MEDS: CEPHALEXIN 250 MG CAPSULE PO SCH ×3 (08:31→20:53)
[2020-01-15] MEDS: DIVALPROEX 125 MG CAP.SPRINK PO SCH ×2 (08:31→20:53)
[2020-01-15] MEDS: PANTOPRAZOLE 40 MG TABLET. PO SCH (08:31)
[2020-01-15] MEDS: GLIMEPIRIDE 2 MG TABLET PO SCH ×2 (08:31→17:00)
[2020-01-15] MEDS: LACTOBACILLUS RHAMNOSUS GG 1 CAPSULE. PO SCH ×2 (08:31→20:53)
[2020-01-15] MEDS: LABETALOL HCL 200 MG TABLET PO SCH ×2 (08:31→20:56)
[2020-01-15] MEDS: POTASSIUM BICARB 20 MEQ EFFERVESCENT TABLET. PO SCH (08:32)
[2020-01-15] MEDS: NYSTATIN TOPICAL POWDER 15GM BOTTLE. TP SCH ×2 (08:32→20:59)
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
[2020-01-15 16:16] VITALS: BP 98/65
--- NOTE | 2020-01-15 20:45 | NUR ---
Pt has been walking in [place] or sitting and visiting with peers. He initially refused shower he later agreed to shower and was cooperative with HS cares. Meds were given crushed in pudding. Pt has had no behaviors tonight and has been sleeping well.
[2020-01-15] MEDS: medroxyPROGESTERone 5 MG TABLET PO SCH (20:53)
[2020-01-15] MEDS: DONEPEZIL HCL 10 MG TABLET PO SCH (20:53)
[2020-01-15] MEDS: ATORVASTATIN CALCIUM 20 MG TABLET PO SCH (20:53)
--- NOTE | 2020-01-15 22:02 | PDOC ---
Exam Note: Cheng Note: Please also refer to the separate dictated note~for this date of service dictated separately.~Patient seen individually. Discussed the patient with Nursing staff reviewed the chart.~Reviewed interim history and current functioning. Reviewed vital signs,~Labs/ Radiology~and current medications noted below. Continue current treatment with the changes noted in the dictated addendum note Assessment: Vital Signs/I&O: Vital Signs Date Time Temp Pulse Resp B/P (MAP) Pulse Ox O2 Delivery O2 Flow Rate FiO2 01/15/20 20:56 52 98/65 01/15/20 19:56 97.6 98 01/15/20 16:16 18 01/14/20 16:16 Room Air I & O 01/14/20 01/14/20 01/15/20 15:00 23:00 07:00 Intake Total 480 ml 240 ml 120 ml Balance 480 ml 240 ml 120 ml Labs: Laboratory Tests Test 01/15/20 06:31 White Blood Count 8.3 x10^3/uL (4.0-11.0) Red Blood Count 3.97 x10^6/uL (4.30-5.70) L Hemoglobin 11.1 g/dL (13.0-17.5) L Hematocrit 34.2 % (39.0-53.0) L Mean Corpuscular Volume 86 fL (79-100) Mean Corpuscular Hemoglobin 28 pg (25-35) Mean Corpuscular Hemoglobin Concent 33 g/dL (31-37) Red Cell Distribution Width 17.0 % (11.5-14.5) H Platelet Count 257 x10^3/uL (140-400) Neutrophils (%) (Auto) 62 % (31-73) Lymphocytes (%) (Auto) 26 % (24-48) Monocytes (%) (Auto) 8 % (0-9) Eosinophils (%) (Auto) 4 % (0-3) H Basophils (%) (Auto) 1 % (0-3) Neutrophils # (Auto) 5.2 x10^3uL (1.8-7.7) Lymphocytes # (Auto) 2.2 x10^3/uL (1.0-4.8) Monocytes # (Auto) 0.6 x10^3/uL (0.0-1.1) Eosinophils # (Auto) 0.3 x10^3/uL (0.0-0.7) Basophils # (Auto) 0.1 x10^3/uL (0.0-0.2) Sodium Level 144 mmol/L (136-145) Potassium Level 3.5 mmol/L (3.5-5.1) Chloride Level 110 mmol/L (98-107) H Carbon Dioxide Level 23 mmol/L (21-32) Anion Gap 11 (6-14) Blood Urea Nitrogen 34 mg/dL (8-26) H Creatinine 1.6 mg/dL (0.7-1.3) H Estimated GFR (Cockcroft-Gault) 41.7 BUN/Creatinine Ratio 21 (6-20) H Glucose Level 97 mg/dL (70-99) Calcium Level 8.5 mg/dL (8.5-10.1) Total Bilirubin 0.5 mg/dL (0.2-1.0) Aspartate Amino Transferase (AST) 19 U/L (15-37) Alanine Aminotransferase (ALT) 28 U/L (16-63) Alkaline Phosphatase 82 U/L (46-116) Total Protein 6.4 g/dL (6.4-8.2) Albumin 2.8 g/dL (3.4-5.0) L Albumin/Globulin Ratio 0.8 (1.0-1.7) L Current Medications: Meds: Current Medications Medications (Trade) Dose Ordered Sig/Gabrielle Route PRN Reason Start Time Stop Time Status Last Admin Dose Admin Divalproex Sodium (Depakote Sprinkles) 375 mg BID PO 01/15/20 21:00 01/15/20 20:53 I have reviewed the current psychotropics carefully including drug interactions. Risk benefit ratio favors no change other than as noted in my dictated progress note. Diagnosis: Problems: (1) Impulse control disorder, unspecified (2) Anxiety disorder, unspecified (3) Dementia, vascular, with depression (4) Dementia, vascular, with delusions (5) Dementia in Alzheimer's disease with depression (6) Dementia in Alzheimer's disease with delusions (7) Dementia of the Alzheimer's type with early onset with behavioral disturbance (8) Major neurocognitive disorder SAVANNAH BIRD MD Jan 15, 2020 22:02
[2020-01-16 05:50] VITALS: BP 121/68
[2020-01-16] MEDS: POTASSIUM BICARB 20 MEQ EFFERVESCENT TABLET. PO SCH (07:55)
[2020-01-16] MEDS: GLIMEPIRIDE 2 MG TABLET PO SCH ×2 (07:56→16:37)
[2020-01-16] MEDS: NYSTATIN TOPICAL POWDER 15GM BOTTLE. TP SCH ×2 (07:56→19:48)
[2020-01-16] MEDS: MEMANTINE 10 MG TABLET. PO SCH ×2 (07:56→19:49)
[2020-01-16] MEDS: LACTOBACILLUS RHAMNOSUS GG 1 CAPSULE. PO SCH ×2 (07:56→19:49)
[2020-01-16] MEDS: PANTOPRAZOLE 40 MG TABLET. PO SCH (07:56)
[2020-01-16] MEDS: DIVALPROEX 125 MG CAP.SPRINK PO SCH ×2 (07:56→19:49)
[2020-01-16] MEDS: ASPIRIN CHEWABLE 81 MG TABLET. PO SCH (07:56)
[2020-01-16] MEDS: IPRATROPIUM/ALBUTEROL 20/100mcg/INH INHALER. INH SCH ×4 (07:56→19:48)
[2020-01-16] MEDS: CEPHALEXIN 250 MG CAPSULE PO SCH ×3 (07:56→19:50)
[2020-01-16] MEDS: QUEtiapine 25 MG TABLET. PO SCH ×3 (07:59→16:54)
[2020-01-16] MEDS: LABETALOL HCL 200 MG TABLET PO SCH ×2 (07:59→19:48)
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
[2020-01-16 16:24] VITALS: BP 170/76
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
[2020-01-16] MEDS: medroxyPROGESTERone 5 MG TABLET PO SCH (19:49)
[2020-01-16] MEDS: ATORVASTATIN CALCIUM 20 MG TABLET PO SCH (19:50)
[2020-01-16] MEDS: DONEPEZIL HCL 10 MG TABLET PO SCH (19:50)
--- NOTE | 2020-01-16 21:59 | PDOC ---
Exam Note: Cheng Note: Please also refer to the separate dictated note~for this date of service dictated separately.~Patient seen individually. Discussed the patient with Nursing staff reviewed the chart.~Reviewed interim history and current functioning. Reviewed vital signs,~Labs/ Radiology~and current medications noted below. Continue current treatment with the changes noted in the dictated addendum note Assessment: Vital Signs/I&O: Vital Signs Date Time Temp Pulse Resp B/P (MAP) Pulse Ox O2 Delivery O2 Flow Rate FiO2 01/16/20 19:48 62 170/76 01/16/20 16:24 98.2 18 93 01/14/20 16:16 Room Air I & O 01/15/20 01/15/20 01/16/20 15:00 23:00 07:00 Intake Total 200 ml 840 ml Balance 200 ml 840 ml Current Medications: Meds: Current Medications Medications (Trade) Dose Ordered Sig/Gabrielle Route PRN Reason Start Time Stop Time Status Last Admin Dose Admin Medroxyprogesterone Acetate (Provera) 12.5 mg HS PO 01/16/20 21:00 01/16/20 19:49 Quetiapine Fumarate (SEROquel) 12.5 mg 0900,1200,1700 PO 01/16/20 17:00 01/16/20 16:54 I have reviewed the current psychotropics carefully including drug interactions. Risk benefit ratio favors no change other than as noted in my dictated progress note. Diagnosis: Problems: (1) Impulse control disorder, unspecified (2) Anxiety disorder, unspecified (3) Dementia, vascular, with depression (4) Dementia, vascular, with delusions (5) Dementia in Alzheimer's disease with depression (6) Dementia in Alzheimer's disease with delusions (7) Dementia of the Alzheimer's type with early onset with behavioral disturbance (8) Major neurocognitive disorder SAVANNAH BIRD MD Jan 16, 2020 21:59
--- NOTE | 2020-01-17 02:38 | NUR ---
Last evening pt was at nurses station saying he had to get home because he has a and 4 kids to take care of. He was rdirectable and meds were given crushed in chocolate pudding. Afterwards he sat with peers in the [place]el[place] visiting quietly until bedtime. He has had no inappropriate behaviors tonight.
[2020-01-17 05:57] VITALS: BP 159/67
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
--- NOTE | 2020-01-17 07:19 | PDOC ---
Exam Note: Cheng Note: This note is a late entry for 01/14/2020 covers elements not covered in my initial note. Subjective: The patient was evaluated face to face in the evening of 01/14/2020 with Amanda ROCK. The patient slept 5-1/4 hours previous night. He did well previous night. He has been trying to ambulate, redirectable, confused. Review of Systems: No CV, , pulmonary, eye, ENT system symptoms on review. Reliability poor. Mental Status Exam: Oriented to himself. Insight and judgment, recent and remote memory, attention and concentration is poor consistent with his jil gnoses. Laboratory Data: Reviewed. Impression: Major neurocognitive disorder Alzheimer vascular with delusion, depression, behavioral disturbance. Anxiety disorder unspecified. Impulse control disorder unspecified. Plan: No change from initial note. Assessment: Vital Signs/I&O: Vital Signs Date Time Temp Pulse Resp B/P (MAP) Pulse Ox O2 Delivery O2 Flow Rate FiO2 01/17/20 05:57 98.1 58 20 159/67 (97) 95 01/14/20 16:16 Room Air I & O 01/16/20 01/16/20 01/17/20 15:00 23:00 07:00 Intake Total 600 ml 240 ml 480 ml Balance 600 ml 240 ml 480 ml Current Medications: Meds: Current Medications Medications (Trade) Dose Ordered Sig/Gabrielle Route PRN Reason Start Time Stop Time Status Last Admin Dose Admin Medroxyprogesterone Acetate (Provera) 12.5 mg HS PO 01/16/20 21:00 01/16/20 19:49 Quetiapine Fumarate (SEROquel) 12.5 mg 0900,1200,1700 PO 01/16/20 17:00 01/16/20 16:54 I have reviewed the current psychotropics carefully including drug interactions. Risk benefit ratio favors no change other than as noted in my dictated progress note. Diagnosis: Problems: (1) Impulse control disorder, unspecified (2) Anxiety disorder, unspecified (3) Dementia, vascular, with depression (4) Dementia, vascular, with delusions (5) Dementia in Alzheimer's disease with depression (6) Dementia in Alzheimer's disease with delusions (7) Dementia of the Alzheimer's type with early onset with behavioral disturbance (8) Major neurocognitive disorder SAVANNAH BIRD MD Jan 17, 2020 07:19
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
[2020-01-17] MEDS: QUEtiapine 25 MG TABLET. PO SCH ×3 (07:54→17:00)
[2020-01-17] MEDS: POTASSIUM BICARB 20 MEQ EFFERVESCENT TABLET. PO SCH (07:54)
[2020-01-17] MEDS: IPRATROPIUM/ALBUTEROL 20/100mcg/INH INHALER. INH SCH ×4 (07:55→19:58)
[2020-01-17] MEDS: PANTOPRAZOLE 40 MG TABLET. PO SCH (07:55)
[2020-01-17] MEDS: LACTOBACILLUS RHAMNOSUS GG 1 CAPSULE. PO SCH ×2 (07:55→20:01)
[2020-01-17] MEDS: DIVALPROEX 125 MG CAP.SPRINK PO SCH ×2 (07:55→20:00)
[2020-01-17] MEDS: LABETALOL HCL 200 MG TABLET PO SCH ×2 (07:55→20:00)
[2020-01-17] MEDS: ASPIRIN CHEWABLE 81 MG TABLET. PO SCH (07:55)
[2020-01-17] MEDS: GLIMEPIRIDE 2 MG TABLET PO SCH ×2 (07:55→17:00)
[2020-01-17] MEDS: CEPHALEXIN 250 MG CAPSULE PO SCH ×3 (07:55→20:01)
[2020-01-17] MEDS: MEMANTINE 10 MG TABLET. PO SCH ×2 (07:55→20:00)
[2020-01-17] MEDS: NYSTATIN TOPICAL POWDER 15GM BOTTLE. TP SCH ×2 (07:56→19:58)
--- NOTE | 2020-01-17 10:10 | NUR ---
Pt sitting in chair at [facility]. Pt drowsy. Pt fell asleep and fell forward in chair hitting forehead. Fall observed by machine operator helper. Small abrasion noted to forehead. VS 114/66, 99.1, 20, 98% RA. Neuro intact. Pt assisted back to bed.
--- NOTE | 2020-01-17 10:30 | NUR ---
DR Gonzales notified of fall. No new orders at this time.
--- NOTE | 2020-01-17 11:30 | NUR ---
Notified LEEROY Villanueva of fall.
[2020-01-17 16:17] VITALS: BP 97/52
--- NOTE | 2020-01-17 18:25 | NUR ---
Pt has been up for meals. Has been drowsy on and off. Neuro intact. Small red bump noted to R forehead. No c/o pain.
[2020-01-17] MEDS: medroxyPROGESTERone 5 MG TABLET PO SCH (19:59)
[2020-01-17] MEDS: DONEPEZIL HCL 10 MG TABLET PO SCH (19:59)
[2020-01-17] MEDS: ATORVASTATIN CALCIUM 20 MG TABLET PO SCH (20:01)
[2020-01-17 20:08] VITALS: BP 127/75
--- NOTE | 2020-01-17 22:09 | PDOC ---
Exam Note: Cheng Note: Please also refer to the separate dictated note~for this date of service dictated separately.~Patient seen individually. Discussed the patient with Nursing staff reviewed the chart.~Reviewed interim history and current functioning. Reviewed vital signs,~Labs/ Radiology~and current medications noted below. Continue current treatment with the changes noted in the dictated addendum note Assessment: Vital Signs/I&O: Vital Signs Date Time Temp Pulse Resp B/P (MAP) Pulse Ox O2 Delivery O2 Flow Rate FiO2 01/17/20 20:08 97.4 65 18 127/75 (92) 92 Room Air I & O 01/16/20 01/16/20 01/17/20 15:00 23:00 07:00 Intake Total 600 ml 240 ml 480 ml Balance 600 ml 240 ml 480 ml Current Medications: I have reviewed the current psychotropics carefully including drug interactions. Risk benefit ratio favors no change other than as noted in my dictated progress note. Diagnosis: Problems: (1) Impulse control disorder, unspecified (2) Anxiety disorder, unspecified (3) Dementia, vascular, with depression (4) Dementia, vascular, with delusions (5) Dementia in Alzheimer's disease with depression (6) Dementia in Alzheimer's disease with delusions (7) Dementia of the Alzheimer's type with early onset with behavioral disturbance (8) Major neurocognitive disorder SAVANNAH BIRD MD Jan 17, 2020 22:09
[2020-01-18 06:41] VITALS: BP 163/76
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
--- NOTE | 2020-01-18 07:34 | PDOC ---
Exam Note: Cheng Note: This note is a late entry for 01/17/2020 covers elements not covered in my initial note. Subjective: The patient was evaluated on telehealth rounds in the evening of 01/17/2020 because of the COVID-19 pandemic restrictions with [facility] nursing aid. Nursing report was with Amanda ROCK. He slept 6 hours previous night. He remains confused. He has been talking about wanting to go home because he has 3 kids to take care of. He slept off in his chair, fell forward, bruised himself. We will monitor this closely as abrasion on his forehead. Review of Systems: No CV, , pulmonary, eye, ENT system symptoms on review. Mental Status Exam: Oriented to himself. Insight and judgment, recent and remote memory, attention and concentration is poor consistent with his diagnoses. Laboratory Data: Reviewed. Impression: Major neurocognitive disorder, Alzheimer vascular with delusion, depression, and behavioral disturbance. Anxiety disorder unspecified. Impulse control disorder unspecified. Rest unchanged. Plan: Continue psychotropics from initial note. Adjust further as clinically indicated. Assessment: Vital Signs/I&O: Vital Signs Date Time Temp Pulse Resp B/P (MAP) Pulse Ox O2 Delivery O2 Flow Rate FiO2 01/18/20 06:41 98.3 68 20 163/76 (105) 98 01/17/20 20:08 Room Air I & O 01/17/20 01/17/20 01/18/20 15:00 23:00 07:00 Intake Total 600 ml 720 ml Balance 600 ml 720 ml Current Medications: I have reviewed the current psychotropics carefully including drug interactions. Risk benefit ratio favors no change other than as noted in my dictated progress note. Diagnosis: Problems: (1) Impulse control disorder, unspecified (2) Anxiety disorder, unspecified (3) Dementia, vascular, with depression (4) Dementia, vascular, with delusions (5) Dementia in Alzheimer's disease with depression (6) Dementia in Alzheimer's disease with delusions (7) Dementia of the Alzheimer's type with early onset with behavioral disturbance (8) Major neurocognitive disorder SAVANNAH BIRD MD Jan 18, 2020 07:34
[2020-01-18 08:00] LABS: BASO # 0.1 x10^3/uL (0.0-0.2); BASO % 1 % (0-3); EOS # 0.2 x10^3/uL (0.0-0.7); EOS % 2 % (0-3); HEMATOCRIT 34.5 % (39.0-53.0); HEMOGLOBIN 11.2 g/dL (13.0-17.5); LYMPH # 2.3 x10^3/uL (1.0-4.8); LYMPH % 24 % (24-48); MEAN CORPUSCULAR HEMOGLOBIN 28 pg (25-35); MEAN CORPUSCULAR HGB CONC 33 g/dL (31-37); MEAN CORPUSCULAR VOLUME 87 fL (79-100); MONO # 0.8 x10^3/uL (0.0-1.1); MONO % 9 % (0-9); NEUT # 6.1 x10^3uL (1.8-7.7); NEUT % 64 % (31-73); PLATELET COUNT 266 x10^3/uL (140-400); RED BLOOD COUNT 3.96 x10^6/uL (4.30-5.70); RED CELL DISTRIBUTION WIDTH 16.9 % (11.5-14.5); WHITE BLOOD COUNT 9.6 x10^3/uL (4.0-11.0)
[2020-01-18 08:12] LABS: ALBUMIN 2.9 g/dL (3.4-5.0); ALBUMIN/GLOBULIN RATIO 0.7 (1.0-1.7); ALK PHOS 90 U/L (46-116); ALT (SGPT) 36 U/L (16-63); ANION GAP 11 (6-14); AST (SGOT) 18 U/L (15-37); BLOOD UREA NITROGEN 24 mg/dL (8-26); BUN/CREATININE RATIO 15 (6-20); CALCIUM 8.6 mg/dL (8.5-10.1); CARBON DIOXIDE 25 mmol/L (21-32); CHLORIDE 110 mmol/L (98-107); CREATININE 1.6 mg/dL (0.7-1.3); GFR 41.7; GLUCOSE 84 mg/dL (70-99); POTASSIUM 3.7 mmol/L (3.5-5.1); SODIUM 146 mmol/L (136-145); TOTAL BILIRUBIN 0.4 mg/dL (0.2-1.0); TOTAL PROTEIN 6.8 g/dL (6.4-8.2)
[2020-01-18 08:23] LABS: VAL ACID 46 mcg/mL (50-100)
[2020-01-18] MEDS: NYSTATIN TOPICAL POWDER 15GM BOTTLE. TP SCH ×2 (09:00→20:36)
[2020-01-18] MEDS: IPRATROPIUM/ALBUTEROL 20/100mcg/INH INHALER. INH SCH ×4 (09:20→20:33)
[2020-01-18] MEDS: LACTOBACILLUS RHAMNOSUS GG 1 CAPSULE. PO SCH ×2 (09:21→20:35)
[2020-01-18] MEDS: GLIMEPIRIDE 2 MG TABLET PO SCH ×2 (09:21→17:18)
[2020-01-18] MEDS: MEMANTINE 10 MG TABLET. PO SCH ×2 (09:21→20:35)
[2020-01-18] MEDS: ASPIRIN CHEWABLE 81 MG TABLET. PO SCH (09:21)
[2020-01-18] MEDS: DIVALPROEX 125 MG CAP.SPRINK PO SCH (09:21)
[2020-01-18] MEDS: CEPHALEXIN 250 MG CAPSULE PO SCH ×3 (09:21→20:35)
[2020-01-18] MEDS: LABETALOL HCL 200 MG TABLET PO SCH ×2 (09:22→20:36)
[2020-01-18] MEDS: POTASSIUM BICARB 20 MEQ EFFERVESCENT TABLET. PO SCH (09:22)
[2020-01-18] MEDS: QUEtiapine 25 MG TABLET. PO SCH ×3 (09:22→17:18)
[2020-01-18] MEDS: PANTOPRAZOLE 40 MG TABLET. PO SCH (09:22)
--- NOTE | 2020-01-18 14:58 | NUR ---
Pt is confused, disorganized, calm, and cooperative. Pt wanders and times but redirects well. No agitation, no aggression, no hallucinations, no delusions noted. He is compliant with his medications and assessment.
[2020-01-18] MEDS ORDERED: ALBUTEROL SULFATE 8GM INHALER. INH ONE (15:15)
[2020-01-18] MEDS ORDERED: ALBUTEROL SULFATE 8GM INHALER. INH PRN (15:30)
[2020-01-18 16:27] VITALS: BP 118/67
[2020-01-18] MEDS: ATORVASTATIN CALCIUM 20 MG TABLET PO SCH (20:35)
[2020-01-18] MEDS: DONEPEZIL HCL 10 MG TABLET PO SCH (20:35)
[2020-01-18] MEDS: medroxyPROGESTERone 5 MG TABLET PO SCH (20:36)
--- NOTE | 2020-01-18 22:05 | PDOC ---
Exam Note: Cheng Note: Please also refer to the separate dictated note~for this date of service dictated separately.~Patient seen individually. Discussed the patient with Nursing staff reviewed the chart.~Reviewed interim history and current functioning. Reviewed vital signs,~Labs/ Radiology~and current medications noted below. Continue current treatment with the changes noted in the dictated addendum note Assessment: Vital Signs/I&O: Vital Signs Date Time Temp Pulse Resp B/P (MAP) Pulse Ox O2 Delivery O2 Flow Rate FiO2 01/18/20 21:56 97.6 100 01/18/20 20:36 68 118/67 01/18/20 16:27 14 01/17/20 20:08 Room Air I & O 01/17/20 01/17/20 01/18/20 15:00 23:00 07:00 Intake Total 600 ml 720 ml Balance 600 ml 720 ml Labs: Laboratory Tests Test 01/18/20 07:17 White Blood Count 9.6 x10^3/uL (4.0-11.0) Red Blood Count 3.96 x10^6/uL (4.30-5.70) L Hemoglobin 11.2 g/dL (13.0-17.5) L Hematocrit 34.5 % (39.0-53.0) L Mean Corpuscular Volume 87 fL (79-100) Mean Corpuscular Hemoglobin 28 pg (25-35) Mean Corpuscular Hemoglobin Concent 33 g/dL (31-37) Red Cell Distribution Width 16.9 % (11.5-14.5) H Platelet Count 266 x10^3/uL (140-400) Neutrophils (%) (Auto) 64 % (31-73) Lymphocytes (%) (Auto) 24 % (24-48) Monocytes (%) (Auto) 9 % (0-9) Eosinophils (%) (Auto) 2 % (0-3) Basophils (%) (Auto) 1 % (0-3) Neutrophils # (Auto) 6.1 x10^3uL (1.8-7.7) Lymphocytes # (Auto) 2.3 x10^3/uL (1.0-4.8) Monocytes # (Auto) 0.8 x10^3/uL (0.0-1.1) Eosinophils # (Auto) 0.2 x10^3/uL (0.0-0.7) Basophils # (Auto) 0.1 x10^3/uL (0.0-0.2) Sodium Level 146 mmol/L (136-145) H Potassium Level 3.7 mmol/L (3.5-5.1) Chloride Level 110 mmol/L (98-107) H Carbon Dioxide Level 25 mmol/L (21-32) Anion Gap 11 (6-14) Blood Urea Nitrogen 24 mg/dL (8-26) Creatinine 1.6 mg/dL (0.7-1.3) H Estimated GFR (Cockcroft-Gault) 41.7 BUN/Creatinine Ratio 15 (6-20) Glucose Level 84 mg/dL (70-99) Calcium Level 8.6 mg/dL (8.5-10.1) Total Bilirubin 0.4 mg/dL (0.2-1.0) Aspartate Amino Transferase (AST) 18 U/L (15-37) Alanine Aminotransferase (ALT) 36 U/L (16-63) Alkaline Phosphatase 90 U/L (46-116) Total Protein 6.8 g/dL (6.4-8.2) Albumin 2.9 g/dL (3.4-5.0) L Albumin/Globulin Ratio 0.7 (1.0-1.7) L Valproic Acid Level 46 mcg/mL (50-100) L Valproic Acid Last Dose Date 01/17/20 Valproic Acid Last Dose Time 2100 Current Medications: Meds: Current Medications Medications (Trade) Dose Ordered Sig/Gabrielle Route PRN Reason Start Time Stop Time Status Last Admin Dose Admin Albuterol Sulfate (Ventolin Hfa Inhaler) 2 puff PRN Q4HRS ONCE INH 01/18/20 15:15 01/18/20 15:18 DC 01/18/20 15:15 I have reviewed the current psychotropics carefully including drug interactions. Risk benefit ratio favors no change other than as noted in my dictated progress note. Diagnosis: Problems: (1) Impulse control disorder, unspecified (2) Anxiety disorder, unspecified (3) Dementia, vascular, with depression (4) Dementia, vascular, with delusions (5) Dementia in Alzheimer's disease with depression (6) Dementia in Alzheimer's disease with delusions (7) Dementia of the Alzheimer's type with early onset with behavioral disturbance (8) Major neurocognitive disorder PELON,MAN M MD Jan 18, 2020 22:05
--- NOTE | 2020-01-19 00:25 | NUR ---
Nursing Note Pt in hallway confused but calm and cooperative. Takes meds crushed in pudding, compliant no agitation at this point.
[2020-01-19 07:16] VITALS: BP 116/55
[2020-01-19] MEDS: IPRATROPIUM/ALBUTEROL 20/100mcg/INH INHALER. INH SCH ×4 (07:21→20:43)
[2020-01-19] MEDS: QUEtiapine 25 MG TABLET. PO SCH ×4 (07:22→20:38)
[2020-01-19] MEDS: GLIMEPIRIDE 2 MG TABLET PO SCH ×2 (07:22→16:18)
[2020-01-19] MEDS: CEPHALEXIN 250 MG CAPSULE PO SCH (07:22)
[2020-01-19] MEDS: LACTOBACILLUS RHAMNOSUS GG 1 CAPSULE. PO SCH ×2 (07:22→20:43)
[2020-01-19] MEDS: ASPIRIN CHEWABLE 81 MG TABLET. PO SCH (07:23)
[2020-01-19] MEDS: POTASSIUM BICARB 20 MEQ EFFERVESCENT TABLET. PO SCH (07:23)
[2020-01-19] MEDS: MEMANTINE 10 MG TABLET. PO SCH ×2 (07:23→20:37)
[2020-01-19] MEDS: NYSTATIN TOPICAL POWDER 15GM BOTTLE. TP SCH ×2 (07:24→20:44)
[2020-01-19] MEDS: PANTOPRAZOLE 40 MG TABLET. PO SCH (07:26)
[2020-01-19] MEDS: LABETALOL HCL 200 MG TABLET PO SCH ×2 (07:27→21:00)
[2020-01-19] MEDS: DIVALPROEX 125 MG CAP.SPRINK PO SCH ×3 (07:29→20:38)
--- NOTE | 2020-01-19 11:24 | NUR ---
WEEKLY ACTIVITY THERAPY NOTE Date of Admission:01/09 Date of AT Assessment:01/10 Precipitating behaviors that initiated intake and admission:Inappropriate Sexual Behaviors Goal aimed:increase time management and socialization skills Initial Goal:Pt will participate in at least one individual or group Activity Therapy session before discharge. Weekly progress towards goal: achieved, 08/23 Group participation level: 1 full, 2 mod, 1 min Weekly highlights: cooperative, redirectable and polite with banana split on Thursday Behaviors observed: jokes and laughs with peers, danced with another pt, sang along to the music, makes inappropriate comments which need redirection, agitated a time, QUINAULT, noncompliant with mask wearing Plan: change goal to: Pt. will participate in at least three individual Activity Therapy sessions per week. Beneficial adaptations:
--- NOTE | 2020-01-19 13:57 | NUR ---
Pt wandering unit all day. Exit seeking and disorganized. Forgets to keep mask on. Compliant with crushed medications. Sexually inappropriate in AM.
[2020-01-19 16:42] VITALS: BP 100/57
[2020-01-19] MEDS: DONEPEZIL HCL 10 MG TABLET PO SCH (20:39)
[2020-01-19] MEDS: medroxyPROGESTERone 5 MG TABLET PO SCH (20:43)
[2020-01-19] MEDS: ATORVASTATIN CALCIUM 20 MG TABLET PO SCH (20:43)
--- NOTE | 2020-01-19 22:06 | PDOC ---
Exam Note: Cheng Note: Please also refer to the separate dictated note~for this date of service dictated separately.~Patient seen individually. Discussed the patient with Nursing staff reviewed the chart.~Reviewed interim history and current functioning. Reviewed vital signs,~Labs/ Radiology~and current medications noted below. Continue current treatment with the changes noted in the dictated addendum note Assessment: Vital Signs/I&O: Vital Signs Date Time Temp Pulse Resp B/P (MAP) Pulse Ox O2 Delivery O2 Flow Rate FiO2 01/19/20 16:42 97.6 76 18 100/57 (71) 99 01/17/20 20:08 Room Air I & O 01/18/20 01/18/20 01/19/20 15:00 23:00 07:00 Intake Total 480 ml 240 ml Balance 480 ml 240 ml Labs: Laboratory Tests Test 01/19/20 07:37 Glucose (Fingerstick) 98 mg/dL (70-99) Current Medications: Meds: Current Medications Medications (Trade) Dose Ordered Sig/Gabrielle Route PRN Reason Start Time Stop Time Status Last Admin Dose Admin Divalproex Sodium (Depakote Sprinkles) 500 mg BID PO 01/19/20 08:00 01/19/20 20:38 Medroxyprogesterone Acetate (Provera) 15 mg HS PO 01/19/20 21:00 01/19/20 20:43 Quetiapine Fumarate (SEROquel) 12.5 mg QID PO 01/19/20 13:00 01/19/20 20:38 I have reviewed the current psychotropics carefully including drug interactions. Risk benefit ratio favors no change other than as noted in my dictated progress note. Diagnosis: Problems: (1) Impulse control disorder, unspecified (2) Anxiety disorder, unspecified (3) Dementia, vascular, with depression (4) Dementia, vascular, with delusions (5) Dementia in Alzheimer's disease with depression (6) Dementia in Alzheimer's disease with delusions (7) Dementia of the Alzheimer's type with early onset with behavioral disturbance (8) Major neurocognitive disorder SAVANNAH BIRD MD Jan 19, 2020 22:06
--- NOTE | 2020-01-19 22:59 | NUR ---
Pt wandering unit all day. Needs constant reminders to keep his mask on and becomes irritable with redirection. Sexually inappropriate at times. Compliant with crushed HS medications. PRN Zyprexa administered at HS.
[2020-01-20 06:19] VITALS: BP 116/80
--- NOTE | 2020-01-20 07:08 | PDOC ---
Exam Note: Cheng Note: This note is a late entry for 01/18/2020 covers elements not covered in my initial note. Subjective: The patient was evaluated face to face in the evening of 01/18/2020 with Dorota ROCK. He slept 7-1/4 hours previous night. He is quite non-stop wandering per nursing report, disorganized, wheezing at times if he walks too much, confused. Review of Systems: No CV, , pulmonary, eye, ENT system symptoms on review. Reliability poor. Mental Status Exam: Oriented to himself. Insight and judgment, recent and remote memory, attention and concentration is poor consistent with his diagnoses. Laboratory Data: Reviewed. Impression: Major neurocognitive disorder, Alzheimer vascular with delusion, depression, and behavioral disturbance. Anxiety disorder unspecified. Impulse control disorder unspecified. Rest unchanged. Plan: The patient is currently on Depakote 375 mg b.i.d.; level is 46 mcg/ml. We will increase Depakote to 500 mg b.i.d. Check CBC, CMP, valproic acid level in 3 days. Adjust further to reach therapeutic level. Continue rest psychotropics unchanged. Assessment: Vital Signs/I&O: Vital Signs Date Time Temp Pulse Resp B/P (MAP) Pulse Ox O2 Delivery O2 Flow Rate FiO2 01/20/20 06:19 97.8 71 22 116/80 (92) 96 01/17/20 20:08 Room Air I & O 01/19/20 01/19/20 01/20/20 15:00 23:00 07:00 Intake Total 240 ml 240 ml 120 ml Balance 240 ml 240 ml 120 ml Labs: Laboratory Tests Test 01/19/20 07:37 Glucose (Fingerstick) 98 mg/dL (70-99) Current Medications: Meds: Current Medications Medications (Trade) Dose Ordered Sig/Gabrielle Route PRN Reason Start Time Stop Time Status Last Admin Dose Admin Divalproex Sodium (Depakote Sprinkles) 500 mg BID PO 01/19/20 08:00 01/19/20 20:38 Medroxyprogesterone Acetate (Provera) 15 mg HS PO 01/19/20 21:00 01/19/20 20:43 Quetiapine Fumarate (SEROquel) 12.5 mg QID PO 01/19/20 13:00 8/27/20 20:38 I have reviewed the current psychotropics carefully including drug interactions. Risk benefit ratio favors no change other than as noted in my dictated progress note. Diagnosis: Problems: (1) Impulse control disorder, unspecified (2) Anxiety disorder, unspecified (3) Dementia, vascular, with depression (4) Dementia, vascular, with delusions (5) Dementia in Alzheimer's disease with depression (6) Dementia in Alzheimer's disease with delusions (7) Dementia of the Alzheimer's type with early onset with behavioral disturbance (8) Major neurocognitive disorder SAVANNAH BIRD MD Jan 20, 2020 07:08
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
[2020-01-20] MEDS: NYSTATIN TOPICAL POWDER 15GM BOTTLE. TP SCH ×2 (09:00→21:27)
[2020-01-20] MEDS: ASPIRIN CHEWABLE 81 MG TABLET. PO SCH (09:00)
[2020-01-20] MEDS: IPRATROPIUM/ALBUTEROL 20/100mcg/INH INHALER. INH SCH ×4 (09:00→21:27)
[2020-01-20] MEDS: GLIMEPIRIDE 2 MG TABLET PO SCH ×2 (09:00→16:44)
[2020-01-20] MEDS: POTASSIUM BICARB 20 MEQ EFFERVESCENT TABLET. PO SCH (09:00)
[2020-01-20] MEDS: LABETALOL HCL 200 MG TABLET PO SCH ×2 (09:01→21:29)
[2020-01-20] MEDS: QUEtiapine 25 MG TABLET. PO SCH ×4 (09:01→21:28)
[2020-01-20] MEDS: LACTOBACILLUS RHAMNOSUS GG 1 CAPSULE. PO SCH ×2 (09:01→21:27)
[2020-01-20] MEDS: DIVALPROEX 125 MG CAP.SPRINK PO SCH ×2 (09:01→21:27)
[2020-01-20] MEDS: MEMANTINE 10 MG TABLET. PO SCH ×2 (09:01→21:28)
[2020-01-20] MEDS: PANTOPRAZOLE 40 MG TABLET. PO SCH (09:01)
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
--- NOTE | 2020-01-20 17:23 | NUR ---
Pt up for breakfast. Took meds in pudding. Drowsy for rest of morning. Pt got up and laid self on floor to sleep. Pt picked up and placed on mat. Has been drowsy rest of afternoon. No meds given rest of day.
[2020-01-20] MEDS ORDERED: traZODone 50 MG TABLET. PO PRN (18:30)
[2020-01-20 21:00] VITALS: BP 158/72
[2020-01-20] MEDS: ATORVASTATIN CALCIUM 20 MG TABLET PO SCH (21:27)
[2020-01-20] MEDS: DONEPEZIL HCL 10 MG TABLET PO SCH (21:28)
[2020-01-20] MEDS: medroxyPROGESTERone 5 MG TABLET PO SCH (21:31)
--- NOTE | 2020-01-20 22:00 | PDOC ---
Exam Note: Cheng Note: Please also refer to the separate dictated note~for this date of service dictated separately.~Patient seen individually. Discussed the patient with Nursing staff reviewed the chart.~Reviewed interim history and current functioning. Reviewed vital signs,~Labs/ Radiology~and current medications noted below. Continue current treatment with the changes noted in the dictated addendum note Assessment: Vital Signs/I&O: Vital Signs Date Time Temp Pulse Resp B/P (MAP) Pulse Ox O2 Delivery O2 Flow Rate FiO2 01/20/20 21:29 61 150/63 01/20/20 08:44 98.3 95 01/20/20 06:19 22 01/17/20 20:08 Room Air I & O 01/19/20 01/19/20 01/20/20 15:00 23:00 07:00 Intake Total 240 ml 240 ml 120 ml Balance 240 ml 240 ml 120 ml Labs: Laboratory Tests Test 01/20/20 07:33 Glucose (Fingerstick) 134 mg/dL (70-99) H Current Medications: I have reviewed the current psychotropics carefully including drug interactions. Risk benefit ratio favors no change other than as noted in my dictated progress note. Diagnosis: Problems: (1) Impulse control disorder, unspecified (2) Anxiety disorder, unspecified (3) Dementia, vascular, with depression (4) Dementia, vascular, with delusions (5) Dementia in Alzheimer's disease with depression (6) Dementia in Alzheimer's disease with delusions (7) Dementia of the Alzheimer's type with early onset with behavioral disturbance (8) Major neurocognitive disorder SAVANNAH BIRD MD Jan 20, 2020 22:00
--- NOTE | 2020-01-20 22:44 | NUR ---
Nursing Note: Pt is in bed upon assessment. Pt was sexually inappropriate with staff. Pt took medications crushed in pudding, and was cussing at this nurse to give him more of the inhaler. Pt took shower and was argumentative about taking one. Pt then grumbled and stated, "I need a warmer now," after his shower. Pt compliant with meds and assessment.
--- NOTE | 2020-01-21 02:54 | NUR ---
Pt keeps getting up out of bed. Pt is restless and has not slept very well. PRN given per mar. Will continue to monitor.
[2020-01-21 06:33] VITALS: BP 135/65
[2020-01-21] MEDS: LABETALOL HCL 200 MG TABLET PO SCH (08:14)
[2020-01-21] MEDS: POTASSIUM BICARB 20 MEQ EFFERVESCENT TABLET. PO SCH (08:14)
[2020-01-21] MEDS: MEMANTINE 10 MG TABLET. PO SCH (08:14)
[2020-01-21] MEDS: GLIMEPIRIDE 2 MG TABLET PO SCH ×2 (08:14→16:35)
[2020-01-21] MEDS: LACTOBACILLUS RHAMNOSUS GG 1 CAPSULE. PO SCH (08:14)
[2020-01-21] MEDS: PANTOPRAZOLE 40 MG TABLET. PO SCH (08:14)
[2020-01-21] MEDS: DIVALPROEX 125 MG CAP.SPRINK PO SCH (08:14)
[2020-01-21] MEDS: ASPIRIN CHEWABLE 81 MG TABLET. PO SCH (08:14)
[2020-01-21] MEDS: QUEtiapine 25 MG TABLET. PO SCH ×3 (08:15→16:36)
[2020-01-21] MEDS: NYSTATIN TOPICAL POWDER 15GM BOTTLE. TP SCH (08:15)
[2020-01-21] MEDS: IPRATROPIUM/ALBUTEROL 20/100mcg/INH INHALER. INH SCH ×3 (08:15→16:00)
--- NOTE | 2020-01-21 11:15 | NUR ---
Pt noted to be in [facility]. Nurse thought pt was in there for non mask compliance, as he has been in [place] several times for same thing. A few minutes later, nurse looked up and noted pt to slip, twist and fall to floor landing on left hip. Floor had been recently mopped and [place] was closed of but according to security, pt let self into [facility].
--- NOTE | 2020-01-21 11:40 | NUR ---
Left hip painful with manipulation. Swelling already noted. Leg slightly shorter than other. Stat xray ordered.
--- NOTE | 2020-01-21 11:45 | NUR ---
Dr Delatorre notified. Order to xray, and given Morphine 4mg IVP. 20 gauge started in R hand.
[2020-01-21] MEDS: MORPHINE SULFATE 2 MG/ML DISP.SYRIN. IV PRN ×2 (11:49→16:07)
[2020-01-21] MEDS ORDERED: ACET325T9 PO (12:15)
[2020-01-21] MEDS ORDERED: ALBU2.5V8 IH (12:18)
[2020-01-21] MEDS ORDERED: IPRA4AER INH (12:18)
[2020-01-21] MEDS ORDERED: LACT1CAP21 PO (12:20)
[2020-01-21] MEDS ORDERED: MAG355OR12 PO (12:22)
[2020-01-21] MEDS ORDERED: MAGN24003 PO (12:24)
[2020-01-21] MEDS ORDERED: MENT1ADH29 TP (12:26)
[2020-01-21] MEDS ORDERED: [UNRECOGNIZED DRUG - CODE] IV (12:29)
[2020-01-21] MEDS ORDERED: NYST15PO9 TP (12:30)
[2020-01-21] MEDS ORDERED: OLAN5TAB3 PO (12:33)
[2020-01-21] MEDS ORDERED: QUET25TA5 PO (12:37)
[2020-01-21] MEDS ORDERED: TRAZ-120 PO (12:38)
--- NOTE | 2020-01-21 12:45 | RAD ---
Examination: 2 views of the left hip and frontal view of the chest HISTORY: History of fall COMPARISON: None available FINDINGS: Low lung volumes and technique accentuates heart size and pulmonary vascularity. The lungs are clear. Mild comminuted displaced fracture of the intertrochanteric fracture left femur. Moderate degenerative changes bilateral hip joint. IMPRESSION: 1. Mild comminuted displaced fracture of the intertrochanteric fracture left femur. 2. Lungs are clear. Electronically signed by: Vipul Claros MD (01/21/2020 12:43 PM) [id number]
--- NOTE | 2020-01-21 14:58 | DS ---
DATE OF DISCHARGE: 01/21/2020 HOSPITAL COURSE: The patient is an 79-year-old male patient, a resident at [facility] who was admitted to [facility] at [facility] on 01/09/2020 on account of being sexually inappropriate behavior towards staff and peers, all this in a background of major neurocognitive disorder, vascular Alzheimer with delusion, depression with behavioral disturbances; anxiety disorder, unspecified and impulse control. He is profoundly demented and does not really give any useful information and he apparently slipped on the floor that was wet and fell and developed severe pain in his right hip joint and his left hip joint and an x-ray of the left hip and pelvis showed that the patient has mild comminuted displaced fracture of the intertrochanteric area of the left femur, and a decision was made to transfer him to [facility] where he was accepted by the hospitalist group there. PHYSICAL EXAMINATION: GENERAL: When I saw him this afternoon, he was resting flat, comfortably in bed, in no apparent distress. He was pale, no jaundice, cyanosis, or thyromegaly. No jugular venous distention. No limb edema. VITAL SIGNS: His heart rate was 62, blood pressure was 135/65, temperature was 98, respiratory rate was 20, and oxygen saturation was 97% on room air. HEAD, EYES, EARS, NOSE, AND THROAT: Showed normocephalic, atraumatic. NECK: Supple. CARDIAC: Normal first and second heart sounds. No gallop or murmurs. CHEST: Clear to auscultation. No crepitation or rhonchi. ABDOMEN: Distended, soft, nontender. NEUROLOGIC: He is profoundly demented without any obvious lateralizing sign. His left lower extremity is externally rotated and painful to movement. LABORATORY DATA: His most recent lab work available showed a white cell count of 9600, hemoglobin 11, hematocrit 34, MCV 87, and platelet count 266,000. His chemistry showed a serum sodium 146, potassium 3.7, chloride 110, bicarbonate 25, anion gap of 11, BUN 24, creatinine 1.6, estimated GFR was 41 mL per minute, his glucose 84, calcium 8.6. Total bilirubin, AST, ALT, alkaline phosphatase were normal. Total protein 6.8, albumin was 2.9. DISCHARGE MEDICATIONS: He will be transferred to [facility] to continue on all his medications including morphine 4 mg IV every 4 hours, trazodone 50 mg at bedtime, medroxyprogesterone 15 mg at bedtime, quetiapine fumarate 12.5 mg 4 times a day, divalproex 500 mg twice a day, albuterol sulfate inhaler 2 puffs every 4 hours, Ozempic 0.25 mg once a day, nystatin powder twice a day, triamcinolone acetonide for Kenalog 3 times a day, Lactobacillus rhamnosus 1 capsule twice a day, olanzapine for Zyprexa Zydis 2.5 mg every 2 hours, atorvastatin 80 mg at bedtime, Aricept 10 mg at bedtime, potassium chloride 20 mEq daily, Protonix 40 mg once a day, Namenda 10 mg twice a day, aspirin 81 mg once a day and Combivent Respimat inhaler 1 puff 4 times a day, glimepiride 2 mg twice a day with meals, labetalol 200 mg twice a day, milk of magnesia 30 mL p.o. daily at bedtime, Mylanta 15 mL after meals and as needed, and acetaminophen 650 mg every 6 hours. FINAL DISCHARGE DIAGNOSES: Fall with left femur intertrochanteric fracture that is mildly comminuted and displaced. The patient has multiple other medical problems including chronic obstructive pulmonary disease, type 2 diabetes, hypertension, hyperlipidemia, obstructive sleep apnea, as well as benign prostatic hypertrophy. JULIAN HERNANDEZ MD DR: STACI/rosita JOB#: [id number] / [id number]
[2020-01-21 15:52] VITALS: BP 154/74
[2020-01-21] MEDS: NON FORMULARY ITEM (Semaglutide (Ozempic) 0.25 MG) SQ SCH (16:00)
--- NOTE | 2020-01-21 17:00 | NUR ---
[employer]airer working on a receiving facility of hip repair. [facility] had not returned call so call placed to [facility]. Received an accepting physician and Dr Delatorre did a peer to peer call. Pt given second dose of morphine IVP. Pt dislodged IV after dose. Restarted with 22 in R FA. Banuelos placed to DD.
[2020-01-21 19:11] LABS: BASO % 0 % (0-3); EOS % 0 % (0-3); HEMATOCRIT 34.3 % (39.0-53.0); HEMOGLOBIN 11.1 g/dL (13.0-17.5); LYMPH # 0.8 x10^3/uL (1.0-4.8); LYMPH % 8 % (24-48); MEAN CORPUSCULAR HEMOGLOBIN 28 pg (25-35); MEAN CORPUSCULAR HGB CONC 32 g/dL (31-37); MEAN CORPUSCULAR VOLUME 87 fL (79-100); MONO # 0.8 x10^3/uL (0.0-1.1); MONO % 8 % (0-9); NEUT # 8.9 x10^3uL (1.8-7.7); NEUT % 84 % (31-73); PLATELET COUNT 263 x10^3/uL (140-400); RED BLOOD COUNT 3.93 x10^6/uL (4.30-5.70); RED CELL DISTRIBUTION WIDTH 17.9 % (11.5-14.5); WHITE BLOOD COUNT 10.6 x10^3/uL (4.0-11.0)
[2020-01-21 19:18] LABS: CALCIUM 8.7 mg/dL (8.5-10.1); CREATININE 1.7 mg/dL (0.7-1.3); GFR 38.9; POTASSIUM 4.4 mmol/L (3.5-5.1)
[2020-01-21 19:23] LABS: ALBUMIN 2.8 g/dL (3.4-5.0); ALBUMIN/GLOBULIN RATIO 0.7 (1.0-1.7); TOTAL BILIRUBIN 0.5 mg/dL (0.2-1.0); TOTAL PROTEIN 6.8 g/dL (6.4-8.2)
--- NOTE | 2020-01-21 20:00 | NUR ---
Report called to Janie Thompson RN at [facility]. LEEROY Villanueva notified of new transfer arrangements. APS transfer arrangement made by Keiko ROCK. Pt to be picked up at 2200. Janie notified of transfer time. Disc obtained for transfer. Dr Damico is accepting doctor. Pt has been resting quietly in bed which has been in quiet coelho in front of nurses station.
--- NOTE | 2020-01-21 20:45 | NUR ---
Transition Record was faxed to follow-up provider with the following elements: Reason for admission, procedures, tests, principal diagnosis, pending studies, patient instructions, 15/12 contact information for unit, phone number to obtain pending test results, plan for follow-up care, physician follow-up, advanced directive information, and medication list with dose, duration and instructions. This information was included in the following documents: History and physical, lab results, study results, progress notes, social work planning form, DC instruction form, patient visit summary, and medication reconciliation form. Date & time record faxed:01/21/202026 Record faxed to: Pradip Singh Record discussed with/ report given to: PRANAV Lima
[2020-01-21 20:50] LABS: % BANDS 2 % (0-9); % BASOS 1 % (0-3); % LYMPHS 5 % (24-48); % MONOS 6 % (0-10); % SEGS 86 % (35-66); PLT ESTIMATE ADEQUATE (ADEQUATE)
[2020-01-21 20:52] LABS: ANISOCYTOSIS SLIGHT; OVALOCYTES OCC; POIKILOCYTOSIS SLIGHT
--- NOTE | 2020-01-21 21:59 | PDOC ---
Exam Note: Cheng Note: Please also refer to the separate dictated note~for this date of service dictated separately.~Patient seen individually. Discussed the patient with Nursing staff reviewed the chart.~Reviewed interim history and current functioning. Reviewed vital signs,~Labs/ Radiology~and current medications noted below. Continue current treatment with the changes noted in the dictated addendum note Assessment: Vital Signs/I&O: Vital Signs Date Time Temp Pulse Resp B/P (MAP) Pulse Ox O2 Delivery O2 Flow Rate FiO2 01/21/20 16:07 22 Room Air 01/21/20 15:52 98.5 60 154/74 (100) 97 I & O 01/20/20 01/20/20 01/21/20 15:00 23:00 07:00 Intake Total 240 ml 100 ml Balance 240 ml 100 ml Labs: Laboratory Tests Test 01/21/20 07:53 01/21/20 18:50 Glucose (Fingerstick) 86 mg/dL (70-99) White Blood Count 10.6 x10^3/uL (4.0-11.0) Red Blood Count 3.93 x10^6/uL (4.30-5.70) L Hemoglobin 11.1 g/dL (13.0-17.5) L Hematocrit 34.3 % (39.0-53.0) L Mean Corpuscular Volume 87 fL (79-100) Mean Corpuscular Hemoglobin 28 pg (25-35) Mean Corpuscular Hemoglobin Concent 32 g/dL (31-37) Red Cell Distribution Width 17.9 % (11.5-14.5) H Platelet Count 263 x10^3/uL (140-400) Neutrophils (%) (Auto) 84 % (31-73) H Lymphocytes (%) (Auto) 8 % (24-48) L Monocytes (%) (Auto) 8 % (0-9) Eosinophils (%) (Auto) 0 % (0-3) Basophils (%) (Auto) 0 % (0-3) Neutrophils # (Auto) 8.9 x10^3uL (1.8-7.7) H Lymphocytes # (Auto) 0.8 x10^3/uL (1.0-4.8) L Monocytes # (Auto) 0.8 x10^3/uL (0.0-1.1) Eosinophils # (Auto) 0.0 x10^3/uL (0.0-0.7) Basophils # (Auto) 0.0 x10^3/uL (0.0-0.2) Segmented Neutrophils % 86 % (35-66) H Band Neutrophils % 2 % (0-9) Lymphocytes % 5 % (24-48) L Monocytes % 6 % (0-10) Basophils % 1 % (0-3) Platelet Estimate Adequate (ADEQUATE) Large Platelets Occ Poikilocytosis Slight Anisocytosis Slight Ovalocytes Occ Crenated Cell Present Prothrombin Time 11.6 SEC (9.4-11.4) H Prothrombin Time INR 1.1 (0.9-1.1) Activated Partial Thromboplast Time 29 SEC (23-33) Sodium Level 147 mmol/L (136-145) H Potassium Level 4.4 mmol/L (3.5-5.1) Chloride Level 113 mmol/L (98-107) H Carbon Dioxide Level 26 mmol/L (21-32) Anion Gap 8 (6-14) Blood Urea Nitrogen 27 mg/dL (8-26) H Creatinine 1.7 mg/dL (0.7-1.3) H Estimated GFR (Cockcroft-Gault) 38.9 BUN/Creatinine Ratio 16 (6-20) Glucose Level 183 mg/dL (70-99) H Calcium Level 8.7 mg/dL (8.5-10.1) Total Bilirubin 0.5 mg/dL (0.2-1.0) Aspartate Amino Transferase (AST) 20 U/L (15-37) Alanine Aminotransferase (ALT) 32 U/L (16-63) Alkaline Phosphatase 95 U/L (46-116) Total Protein 6.8 g/dL (6.4-8.2) Albumin 2.8 g/dL (3.4-5.0) L Albumin/Globulin Ratio 0.7 (1.0-1.7) L Current Medications: Meds: Current Medications Medications (Trade) Dose Ordered Sig/Gabrielle Route PRN Reason Start Time Stop Time Status Last Admin Dose Admin Morphine Sulfate (Morphine 2mg Syringe) 4 mg PRN Q4HRS PRN IV PAIN 01/21/20 11:45 01/21/20 16:07 I have reviewed the current psychotropics carefully including drug interactions. Risk benefit ratio favors no change other than as noted in my dictated progress note. Diagnosis: Problems: (1) Impulse control disorder, unspecified (2) Anxiety disorder, unspecified (3) Dementia, vascular, with depression (4) Dementia, vascular, with delusions (5) Dementia in Alzheimer's disease with depression (6) Dementia in Alzheimer's disease with delusions (7) Dementia of the Alzheimer's type with early onset with behavioral disturbance (8) Major neurocognitive disorder SAVANNAH BIRD MD Jan 21, 2020 21:59
--- NOTE | 2020-01-22 21:19 | DS ---
DATE OF DISCHARGE: 01/21/2020 DISCHARGE SUMMARY/PSYCHIATRIC PROGRESS NOTE This late entry 01/21/2020 covers elements not covered in my initial note. REASON FOR ADMISSION: Please refer to the admission history for details. Briefly, the patient is an 79-year-old male referred to us from [facility], referred by primary care physician on account of sexually inappropriate behaviors and statements towards staff and peers. The patient was aggressive, disruptive, had failed outpatient psychiatric interventions potentially dangerous at the facility, referred for inpatient psychiatric stabilization. SIGNIFICANT FINDINGS AND CLINICAL COURSE: Following admission, the patient was seen daily individually by myself from a psychiatric standpoint, medical followup per Dr. Delatorre/Dr Gonzales. The patient remained confused, anxious, restless, would walk extremely fast, was delusional, sexually inappropriate. Adjustments were made in his psychotropics and he seemed to be showing some initial response to this. However, it was still early in his hospitalization. He slipped and had a fall and had a comminuted fracture of his lower extremity and was transferred to [facility] on 01/21/2020. REVIEW OF SYSTEMS: Prior to discharge, ambulation impaired. No CV, , pulmonary, eye system symptoms on review. Reliability poor. MENTAL STATUS EXAM: Oriented to himself. Insight, judgment, recent and remote memory, attention, concentration, fund of knowledge poor, consistent with his diagnosis. FINAL DIAGNOSES: Major neurocognitive disorder, Alzheimer's, vascular with delusion, depression, behavioral disturbance; anxiety disorder, unspecified; impulse control disorder, unspecified; status post fall and fracture lower extremity. Rest unchanged from admission. DISCHARGE MEDICATIONS: Please refer to the MRAD. DISCHARGE INSTRUCTIONS: Psychiatric and medical followup at [facility]. Time for discharge day management greater than 30 minutes. MAN Tricia BIRD MD DR: MARY ELLEN/rosita JOB#: [id number] / [id number]
--- NOTE | 2020-01-23 07:04 | PDOC ---
Exam Note: Cheng Note: This note is a late entry for 01/20/2020 covers elements not covered in my initial note. Subjective: The patient was evaluated on telehealth rounds in the evening of 01/20/2020 with [facility] nursing aid as one of the patients on the unit has tested positive for COVID-19 and unit is on a lockdown with no admission and discharges. That is the reason I am doing telehealth rounds to minimize any further spread of the infection. Nursing report with Amanda ROCK. He slept 3 hours previous night. He slept later till about breakfast time and then slept on the floor. Review of Systems: No CV, , pulmonary, eye, ENT system symptoms on review. Mental Status Exam: Oriented to himself. Insight and judgment, recent and remote memory, attention and concentration is poor consistent with his diagnoses. Laboratory Data: Reviewed. Impression: Major neurocognitive disorder, Alzheimer vascular with delusion, depression, and behavioral disturbance. Anxiety disorder unspecified. Impulse control disorder unspecified. Rest unchanged. Plan: Continue current psychotropics. Start trazodone 50 mg h.s. p.r.n. Repeat x1 for insomnia. Continue rest unchanged. Assessment: Vital Signs/I&O: Vital Signs Date Time Temp Pulse Resp B/P (MAP) Pulse Ox O2 Delivery O2 Flow Rate FiO2 01/21/20 16:07 22 Room Air 01/21/20 15:52 98.5 60 154/74 (100) 97 Current Medications: I have reviewed the current psychotropics carefully including drug interactions. Risk benefit ratio favors no change other than as noted in my dictated progress note. Diagnosis: Problems: (1) Impulse control disorder, unspecified (2) Anxiety disorder, unspecified (3) Dementia, vascular, with depression (4) Dementia, vascular, with delusions (5) Dementia in Alzheimer's disease with depression (6) Dementia in Alzheimer's disease with delusions (7) Dementia of the Alzheimer's type with early onset with behavioral disturbance (8) Major neurocognitive disorder SAVANNAH BIRD MD Jan 23, 2020 07:04
== END 2020-01-21 20:45 | disposition short-term general hospital (02) | DRG 56 ==
LOC: GEROPSY 14:15
PROVIDERS: ADMIT Psychiatry & Neurology Psychiatry; ATTEND Psychiatry & Neurology Psychiatry
DX: G30.9 Alzheimer's disease, unspecified (principal); N17.0 Acute kidney failure with tubular necrosis; S72.142A Displaced intertrochanteric fracture of left femur, initial encounter for closed fracture; E87.0 Hyperosmolality and hypernatremia; F01.51 Vascular dementia, unspecified severity, with behavioral disturbance; F02.81 Dementia in other diseases classified elsewhere, unspecified severity, with behavioral disturbance; N39.0 Urinary tract infection, site not specified; F63.9 Impulse disorder, unspecified; D63.8 Anemia in other chronic diseases classified elsewhere; E11.22 Type 2 diabetes mellitus with diabetic chronic kidney disease; E78.5 Hyperlipidemia, unspecified; E87.6 Hypokalemia; F32.9 Major depressive disorder, single episode, unspecified; W01.0XXA Fall on same level from slipping, tripping and stumbling without subsequent striking against object, initial encounter; F41.9 Anxiety disorder, unspecified; G47.33 Obstructive sleep apnea (adult) (pediatric); H91.90 Unspecified hearing loss, unspecified ear; I12.9 Hypertensive chronic kidney disease with stage 1 through stage 4 chronic kidney disease, or unspecified chronic kidney disease; J44.9 Chronic obstructive pulmonary disease, unspecified; M15.9 Polyosteoarthritis, unspecified; N18.9 Chronic kidney disease, unspecified; Y92.238 Other place in hospital as the place of occurrence of the external cause; N40.0 Benign prostatic hyperplasia without lower urinary tract symptoms; S00.81XA Abrasion of other part of head, initial encounter; W07.XXXA Fall from chair, initial encounter; Z66 Do not resuscitate; Z79.899 Other long term (current) drug therapy; Z20.828 Contact with and (suspected) exposure to other viral communicable diseases; Z87.440 Personal history of urinary (tract) infections; Z88.8 Allergy status to other drugs, medicaments and biological substances; Y93.89 Activity, other specified; Y99.8 Other external cause status
CPT/HCPCS: 36415; 71045; 73502; 74176; 80048; 80053; 80061; 80164; 81001; 82306; 82607; 82947; 83036; 83540; 83550; 83735; 84436; 84443; 84480; 85007; 85025; 85610; 85730; 86592; 87077; 87086; 87186; 93005; J2270; J7613; 97530; U0003-CS